=== PATIENT | male | born 1935 | race Caucasian/White ===

== ENCOUNTER 2017-05-13 06:45 | Inpatient (IN) | payer MEDICARE, BC ==
[2017-05-13] MEDS ORDERED: Sodium Chloride 0.9% 10 ML Syringe FLUSH PRN (07:19)
--- NOTE | 2017-05-13 07:27 | EDM.PDOC ---
ED HPI GENERAL MEDICAL PROBLEM - General Chief Complaint: General Stated Complaint: Fell out of bed, no injuries noted Time Seen by Provider: 05/13/17 07:17 Source of Information: Reports: Patient, Family History Limitations: Reports: No Limitations - History of Present Illness INITIAL COMMENTS - FREE TEXT/NARRATIVE: Patient is brought in this morning at 7 AM with complaints of weakness and confusion, and following out of bed. He is unable to walk well on his own and is brought in via ambulance. He does live with his sister and was stated that he fell out of bed during the night and he was left there. He is generally unkempt, he does have some very dirty dentition. Does have history of uncontrolled diabetes, hypertension, prior CVA, as well as cardiac stent placements. He also complains of a rash to his upper right shoulder that goes to his back and neck. He states this rash started about 4 days ago. He denies that he has any chest pain, shortness breath, abdominal pain, headache, he does however indicate that he is pain more frequently as well as having more frequent bowel movements. He smokes 1/4-1/2 pack per day. Has smoked since age 16. Has not had alcohol in over a year. Denies drug use. Onset: Sudden Onset Date: 05/13/17 Duration: Intermittent Associated Symptoms: Reports: Confusion - Related Data Allergies Allergy/AdvReac Type Severity Reaction Status Date / Time No Known Allergies Allergy Verified 05/13/17 07:29 Home Meds: Home Meds Calcium Carbonate [Tums] 2 tab.chew PO DAILY 02/24/13 [History] FA/Lycopene/Lut/MV,Ca,Iron,Min [Centrum] 1 tab PO DAILY 02/24/13 [History] Lisinopril [Prinivil] 2.5 mg PO DAILY tablet 06/05/14 [Rx] glyBURIDE [Micronase] 2.5 mg PO BIDM tablet 06/05/14 [Rx] Alendronate [Fosamax] 70 mg PO WEEKLY 06/13/14 [History] Clopidogrel [Plavix] 75 mg PO 06/13/14 [History] Ezetimibe/Simvastatin [Vytorin 10-40 mg Tablet] 1 each PO 06/13/14 [History] Aspirin [Ecotrin] 325 mg PO Q6HR PRN 05/13/17 [History] metFORMIN [Glucophage] 500 mg PO BIDMEALS 05/13/17 [History] Social & Family History - Tobacco Use Smoking Status *Q: Current Every Day Smoker Years of Tobacco use: 55 Used Tobacco, but Quit: No Second Hand Smoke Exposure: No - Alcohol Use Days Per Week of Alcohol Use: 7 Number of Drinks Per Day: 2 Total Drinks Per Week: 14 - Recreational Drug Use Recreational Drug Use: No - Living Situation & Occupation Living situation: Reports: with Family ED ROS GENERAL - Review of Systems Review Of Systems: See Below Constitutional: Reports: No Symptoms HEENT: Reports: No Symptoms Respiratory: Reports: No Symptoms Cardiovascular: Reports: No Symptoms Endocrine: Reports: High Glucose GI/Abdominal: Reports: Other (frequent bowel movements) : Reports: Frequency Musculoskeletal: Reports: No Symptoms Skin: Reports: Erythema Neurological: Reports: Confusion, Weakness Psychiatric: Reports: No Symptoms Hematologic/Lymphatic: Reports: No Symptoms Immunologic: Reports: No Symptoms ED EXAM, GENERAL - Physical Exam Exam: See Below Exam Limited By: Altered Mental Status General Appearance: Alert, No Apparent Distress Eye Exam: Bilateral Eye: EOMI, PERRL Ears: Normal TMs Nose: Normal Inspection, Normal Mucosa, No Blood Throat/Mouth: Normal Inspection, Normal Lips, Normal Teeth, Normal Gums, Normal Oropharynx, Normal Voice, No Airway Compromise Head: Atraumatic, Normocephalic Neck: Normal Inspection, Supple, Non-Tender, Full Range of Motion Respiratory/Chest: No Respiratory Distress, Lungs Clear, Normal Breath Sounds, No Accessory Muscle Use, Chest Non-Tender Cardiovascular: Normal Peripheral Pulses, Regular Rate, Rhythm, No Edema, No Gallop, No JVD, No Murmur, No Rub Peripheral Pulses: 2+: Posterior Tibial (L), Posterior Tibial (R), Dorsalis Pedis (L), Dorsalis Pedis (R) GI/Abdominal: Normal Bowel Sounds, Soft, Non-Tender, No Organomegaly, No Distention, No Abnormal Bruit, No Mass Extremities: Normal Inspection, Non-Tender, No Pedal Edema, Normal Capillary Refill, Limited Range of Motion (weakness) Neurological: Alert, Confused, Abnormal Gait Psychiatric: Normal Affect, Normal Mood Skin Exam: Rash (large caustic rash to right shoulder, upper right back and right neck, blisters present as is sloughing skin, states it started 4 days ago) EKG INTERPRETATION EKG Date: 05/13/17 Time: 07:02 Rhythm: Other (sinus tachycardia with pvc's) Rate (Beats/Min): 113 [place]: Normal P-Wave: Present QRS: Normal ST-T: Normal QT: Normal Comparison: Change From Previous EKG EKG Interpretation Comments: Sinus tachcardia with frequent supraventricular premature complexes low QRS voltage in extremity leads septal [place] of indeterminate age - seen on prior EKG Course - Orders/Labs/Meds Orders: Active Orders 24 hr Category Date Time Status CBC WITH MANUAL DIFF [HEME] Stat Lab 05/13/17 07:17 Ordered COMPREHENSIVE METABOLIC PN,CMP [CHEM] Stat Lab 05/13/17 07:17 Ordered CPK [CREATINE KINASE,CK] [CHEM] Stat Lab 05/13/17 07:17 Ordered UA W/MICROSCOPIC [URIN] Stat Lab 05/13/17 07:17 Ordered Sodium Chloride 0.9% @ 125 MLS/HR (1000ml) Med 05/13/17 07:30 Ordered Sodium Chloride 0.9% [Normal Saline] 1,000 ml IV ASDIRECTED Sodium Chloride 0.9% [Saline Flush] Med 05/13/17 07:19 Ordered 10 ml FLUSH ASDIRECTED PRN Saline Lock Insert [OM.PC] Routine Oth 05/13/17 07:19 Ordered - Re-Assessments/Exams Free Text/Narrative Re-Assessment/Exam: 05/13/17 09:11 urine does show ketones, leukocytes, WBC's - will treat for complicated UTI 05/13/17 10:27 Admission to acute care, report given to Shahriar Douglas Departure - Departure Time of Disposition: 09:45 Disposition: Admitted As Inpatient 66 Condition: Fair Clinical Impression: UTI, Urinary tract infectious disease - Discharge Information - My Orders Last 24 Hours: My Active Orders 05/13/17 07:17 CBC WITH MANUAL DIFF [HEME] Stat COMPREHENSIVE METABOLIC PN,CMP [CHEM] Stat CPK [CREATINE KINASE,CK] [CHEM] Stat UA W/MICROSCOPIC [URIN] Stat 05/13/17 07:19 Sodium Chloride 0.9% [Saline Flush] 10 ml FLUSH ASDIRECTED PRN Saline Lock Insert [OM.PC] Routine 05/13/17 07:30 Sodium Chloride 0.9% @ 125 MLS/HR (1000ml) Sodium Chloride 0.9% [Normal Saline] 1,000 ml IV ASDIRECTED - Assessment/Plan Last 24 Hours: My Active Orders 05/13/17 07:17 CBC WITH MANUAL DIFF [HEME] Stat COMPREHENSIVE METABOLIC PN,CMP [CHEM] Stat CPK [CREATINE KINASE,CK] [CHEM] Stat UA W/MICROSCOPIC [URIN] Stat 05/13/17 07:19 Sodium Chloride 0.9% [Saline Flush] 10 ml FLUSH ASDIRECTED PRN Saline Lock Insert [OM.PC] Routine 05/13/17 07:30 Sodium Chloride 0.9% @ 125 MLS/HR (1000ml) Sodium Chloride 0.9% [Normal Saline] 1,000 ml IV ASDIRECTED
[2017-05-13] MEDS: Sodium Chloride 0.9% 1,000 ML IV SCH ×2 (07:36→17:51)
[2017-05-13] MEDS ORDERED: Triamcinolone Acetonide 0.1% Crm 15 GM Tube TOP ONE (07:44)
[2017-05-13] MEDS ORDERED: cefTRIAXone 1 GM Vial IVPUSH ONE (08:57)
[2017-05-13] MEDS ORDERED: Diphtheria,Pertussis(Acell),Tetanus Vaccine 0.5 ML Syringe IM ONE (09:22)
[2017-05-13] MEDS ORDERED: Pneumococcal 23-Valent Conjugate Vaccine 0.5 ML Syringe IM ONE (09:22)
[2017-05-13] MEDS ORDERED: FLU Vacc TS 2017-18 (65yr UP)/PF 180 MCG/0.5 ML Syringe IM ONE (09:45)
[2017-05-13] MEDS ORDERED: Ondansetron 4 MG Tab.DIS PO PRN (10:41)
[2017-05-13] MEDS ORDERED: Insulin Regular, Human 100 Units/ML 3 ML Vial IV ONE (13:41)
--- NOTE | 2017-05-13 13:43 | PCM.HP ---
H&P History of Present Illness - General Date of Service: 05/13/17 Admit Problem/Dx: Admission Diagnosis/Problem Admission Diagnosis/Problem Urinary tract infection in male Hyperglycemia in the setting of Uncontrolled Diabetes Type II Acute Dermatitis Essential Hypertension Mixed Hyperlipidemia Malnutrition, albumin 3.1 Nicotine Dependence Source of Information: Patient, EMS Notes Reviewed, Family, Old Records, RN, RN Notes Reviewed History Limitations: Reports: Altered Mental Status (confusion) - History of Present Illness Initial Comments - Free Text/Narative: Patient was brought to the ED at [facility] this AM via EMS after he fell at home last evening. Patient is confused and a poor historian. According to the patient's sister, whom he lives with, the patient fell out of bed sometime last evening. The sister states she was unable to life the patient off the floor , so he was left there until EMS was called around 7am today. The patient denies any pain. He states he was a chronic non-productive cough "that I have had for years." He denies any abdominal pain. No N/V/D. He has a caustic rash over the right chest wall extending around to the upper right posterior shoulder. Blisters are present with some sloughing. Patient states the rash started about 4 days ago. He admits he tried spraying Lysol onto the rash "to make it go away." He denies any peripheral neuropathy. He states his weakness has been present for some time. CT of Head did not reveal any acute pathology today. His urine did show a mild UTI, +ketones, with glucose in the urine. He admits he does not follow an ADA diet. His last visit with his PCP was April 2016. He is due for his annual exam with his PCP anytime. Onset of Symptoms: Reports: Gradual - Related Data Allergies/Adverse Reactions: Allergies Allergy/AdvReac Type Severity Reaction Status Date / Time No Known Allergies Allergy Verified 05/13/17 07:29 Home Medications: Home Meds Calcium Carbonate [Tums] 2 tab.chew PO DAILY 02/24/13 [History] FA/Lycopene/Lut/MV,Ca,Iron,Min [Centrum] 1 tab PO DAILY 02/24/13 [History] Lisinopril [Prinivil] 2.5 mg PO DAILY tablet 06/05/14 [Rx] glyBURIDE [Micronase] 2.5 mg PO BIDM tablet 06/05/14 [Rx] Alendronate [Fosamax] 70 mg PO WEEKLY 06/13/14 [History] Clopidogrel [Plavix] 75 mg PO DAILY 06/13/14 [History] Ezetimibe/Simvastatin [Vytorin 10-40 mg Tablet] 1 each PO DAILY 06/13/14 [ History] Aspirin [Ecotrin] 325 mg PO Q6HR PRN 05/13/17 [History] metFORMIN [Glucophage] 500 mg PO BIDMEALS 05/13/17 [History] Past Medical History HEENT History: Reports: Hard of Hearing Cardiovascular History: Reports: CAD, High Cholesterol, Hypertension, PTCA, PVD Other Cardiovascular History: Peripheral artery disease Gastrointestinal History: Reports: Colon Polyp Musculoskeletal History: Reports: Back Pain, Chronic, Osteoporosis Other Musculoskeletal History: avascular necrosis of femur head. spondylolysis of lumbosacral region. thoracic compression fracture Neurological History: Reports: CVA Endocrine/Metabolic History: Reports: Diabetes, Type II, Osteoporosis - Past Surgical History Cardiovascular Surgical History: Reports: Carotid Endarterectomy, Coronary Artery Stent, Other (See Below) Other Cardiovascular Surgeries/Procedures: coronary angioplasty GI Surgical History: Reports: Colonoscopy, Other (See Below) Other GI Surgeries/Procedures: colectomy Social & Family History - Family History Family Medical History: Noncontributory - Tobacco Use Smoking Status *Q: Current Every Day Smoker Years of Tobacco use: 55 Packs/Tins Daily: 0.5 Used Tobacco, but Quit: No Second Hand Smoke Exposure: No - Caffeine Use Caffeine Use: Reports: None - Alcohol Use Alcohol Use History: Yes Days Per Week of Alcohol Use: 7 Number of Drinks Per Day: 2 Total Drinks Per Week: 14 Alcohol Use Frequency: Not Used in Over 1 Year - Recreational Drug Use Recreational Drug Use: No Drug Use in Last 12 Months: No - Living Situation & Occupation Living situation: Reports: Single, with Family Occupation: Retired H&P Review of Systems - Review of Systems: Review Of Systems: See Below General: Reports: Weakness, Fatigue. Denies: Fever, Chills Pulmonary: Reports: Cough. Denies: Shortness of Breath Cardiovascular: Denies: Chest Pain, Palpitations Gastrointestinal: Denies: Abdominal Pain, Nausea, Vomiting Skin: Reports: Rash Neurological: Reports: Confusion. Denies: Dizziness, Headache, Numbness, Paresthesia, Tingling Exam - Exam Exam: See Below - Vital Signs Vital Signs: Last Vital Signs Temp 36.5 C 05/13/17 09:12 Pulse 94 05/13/17 09:12 Resp 16 05/13/17 09:12 BP 142/89 H 05/13/17 09:12 Pulse Ox 97 05/13/17 09:12 Weight: 47.174 kg - Exam Quality Assessment: DVT Prophylaxis, Skin Breakdown General: Alert, Cooperative. No: Oriented Lungs: Clear to Auscultation, Normal Respiratory Effort, Decreased Breath Sounds Cardiovascular: Regular Rate, Regular Rhythm, Normal S1, Normal S2 GI/Abdominal Exam: Soft, Non-Tender, Abnormal Bowel Sounds (Hypoactive) Peripheral Pulses: 2+: Radial (L), Radial (R) Skin: Warm, Dry, Rash (Caustic, blister type rash over the right upper anterior chest wall extending to upper posterior right shoulder; ), Wound (abrasion to the right and left medial knees; skin intact; no evidence of infection) Neuro Extensive - Mental Status: Alert, Disorientation to Place, Disorientation to Time, Memory Loss-Recent Events (chronic) - Patient Data Result Diagrams: 05/13/17 07:45 05/13/17 07:45 Javier Results Last 24 hrs: Microbiology 05/13/17 09:28 Anaerobic Blood Culture - Final Blood - Venous - Lab Draw 05/13/17 09:21 Anaerobic Blood Culture - Final Blood - Venous *Q Meaningful Use (ADM) - VTE *Q VTE Criteria *Q: VTE Mechanical Contraindications *Q: At Risk for Falls - Stroke *Q Stroke Criteria *Q: - AMI *Q AMI Criteria *Q: - Problem List (1) UTI, Urinary tract infectious disease SNOMED Code(s): 51012294 ICD Code: N39.0 - URINARY TRACT INFECTION, SITE NOT SPECIFIED Status: Acute Priority: Medium Current Visit: Yes (2) Weakness SNOMED Code(s): 27616911 ICD Code: R53.1 - WEAKNESS Status: Acute Priority: Medium Current Visit : Yes (3) Hyperglycemia due to type 2 diabetes mellitus SNOMED Code(s): 970818954946386 ICD Code: E11.65 - TYPE 2 DIABETES MELLITUS WITH HYPERGLYCEMIA Status: Acute Priority: High Current Visit: Yes Qualifiers: Diabetes mellitus termite treater insulin use: without termite treater use Qualified Code(s): E11.65 - Type 2 diabetes mellitus with hyperglycemia (4) Dermatitis SNOMED Code(s): 80973717 ICD Code: L30.9 - DERMATITIS, UNSPECIFIED Status: Acute Priority: Medium Current Visit: Yes Onset Date: ~05/09/17 (5) Malnutrition SNOMED Code(s): 42087473 ICD Code: E46 - UNSPECIFIED PROTEIN-CALORIE MALNUTRITION Status: Acute Current Visit: Yes Qualifiers: Malnutrition type: protein-calorie malnutrition Protein-calorie malnutrition severity: mild Qualified Code(s): E44.1 - Mild protein-calorie malnutrition (6) Nicotine dependence with current use SNOMED Code(s): 375993470 ICD Code: F17.200 - NICOTINE DEPENDENCE, UNSPECIFIED, UNCOMPLICATED Status : Chronic Current Visit: Yes (7) Coronary artery disease SNOMED Code(s): 90931955 ICD Code: I25.10 - ATHSCL HEART DISEASE OF [place] CORONARY ARTERY W/O ANG PCTRS Status: Chronic Priority: Medium Current Visit: No Qualifiers: Coronary Disease-Associated Artery/Lesion type: [place] artery [place] vs. transplanted heart: [place] heart Associated angina: without angina Qualified Code(s): I25.10 - Atherosclerotic heart disease of [place] coronary artery without angina pectoris (8) Essential hypertension SNOMED Code(s): 69909500 ICD Code: I10 - ESSENTIAL (PRIMARY) HYPERTENSION Status: Chronic Priority : Medium Current Visit: No (9) Mixed hyperlipidemia due to type 2 diabetes mellitus SNOMED Code(s): 20403115 ICD Code: E11.69 - TYPE 2 DIABETES MELLITUS WITH OTHER SPECIFIED COMPLICATION ; E78.2 - MIXED HYPERLIPIDEMIA Status: Chronic Priority: Medium Current Visit: No Problem List Initiated/Reviewed/Updated: Yes Orders Last 24hrs: Active Orders 24 hr Category Date Time Status Patient Status [ADT] Routine ADT 05/13/17 10:35 Active Accu Check [Blood Glucose Check, Bedside] [RC] TIDAC Care 05/13/17 12:44 Active Ambulate [RC] 08,20 Care 05/13/17 10:41 Active Intake and Output [RC] ,18 Care 05/13/17 10:45 Active May Shower [RC] .PRN Care 05/13/17 10:41 Active Oxygen Therapy [RC] PRN Care 05/13/17 10:35 Active Smoking Cessation Education [RC] ROUTINE Care 05/13/17 13:18 Active VTE/DVT Education [RC] .PRN Care 05/13/17 10:35 Active Vaccines to be Administered [RC] PER UNIT ROUTINE Care 05/13/17 09:24 Active Vital Signs [RC] 06,10,14,18,22,02 Care 05/13/17 10:35 Active Consult to Case Management [CONS] Routine Cons 05/13/17 10:41 Active OT Evaluation and Treatment [CONS] Routine Cons 05/13/17 10:41 Active PT Evaluation and Treatment [CONS] Routine Cons 05/13/17 10:41 Active [place] [employer] Diet [DIET] Diet 05/13/17 Breakfast Active Chest 2V [CR] Routine Exams 05/13/17 13:16 Ordered BASIC METABOLIC PANEL,BMP [CHEM] Routine Lab 05/14/17 05:11 Ordered BLOOD SMEARS TO PATHOLOGIST [REF] Routine Lab 05/14/17 05:11 Ordered CBC WITH AUTO DIFF [HEME] Routine Lab 05/14/17 05:11 Ordered CULTURE BLOOD [BC] Stat Lab 05/13/17 09:21 Results CULTURE BLOOD [BC] Stat Lab 05/13/17 09:28 Results CULTURE URINE [RM] Stat Lab 05/13/17 07:24 Received GLYCOSYLATED HEMOGLOBIN,HGBA1C [CHEM] Routine Lab 05/14/17 05:11 Ordered LIPID PANEL [CHEM] Routine Lab 05/14/17 05:11 Ordered MAGNESIUM [CHEM] Routine Lab 05/14/17 05:11 Ordered MICROALBUMIN, URINE RANDOM Routine Lab 05/14/17 05:11 Ordered Acetaminophen [Tylenol] Med 05/13/17 10:41 Active 650 mg PO Q4H PRN Aspirin [Halfprin] Med 05/14/17 08:00 Active 81 mg PO WITHBREAKFAST Ciprofloxacin in D5W [Cipro in D5W 400 MG/200 ML] 400 Med 05/13/17 14:00 Active mg Premix Bag 1 bag IV Q12H Clopidogrel [Plavix] Med 05/13/17 13:00 Active 75 mg PO DAILY Ezetimibe [Zetia] Med 05/13/17 13:00 Active 10 mg PO DAILY Insulin Regular, Human [HumuLIN R] Med 05/13/17 17:00 Active See Protocol SUBCUT TIDAC Lisinopril [Prinivil] Med 05/13/17 13:00 Active 5 mg PO DAILY Nicotine [Habitrol] Med 05/13/17 13:30 Active 21 mg TRDERM DAILY Ondansetron [Zofran ODT] Med 05/13/17 10:41 Active 4 mg PO Q6H PRN Simvastatin [Zocor] Med 05/13/17 13:00 Active 40 mg PO DAILY Triamcinolone Acetonide [Triamcinolone Acetonide 0.1% Med 05/13/17 20:00 Active Crm] 0 gm TOP BID glyBURIDE [Micronase] Med 05/13/17 18:00 Active 2.5 mg PO BIDM metFORMIN [Glucophage] Med 05/13/17 18:00 Active 1,000 mg PO BIDMEALS Blood Culture x2 Reflex Set [OM.PC] Stat Oth 05/13/17 08:59 Ordered Resuscitation Status Routine Resus Stat 05/13/17 10:34 Ordered Medication Orders Acetaminophen (Tylenol) 650 mg PO Q4H PRN PRN Reason: Pain (Mild 1-3)/fever Aspirin (Halfprin) 81 mg PO WITHBREAKFAST [facility] Clopidogrel Bisulfate (Plavix) 75 mg PO DAILY [facility] Ezetimibe (Zetia) 10 mg PO DAILY [facility] Glyburide (Micronase) 2.5 mg PO BIDM [facility] Sodium Chloride (Normal Saline) 1,000 mls @ 125 mls/hr IV ASDIRECTED [facility] Last Admin: 05/13/17 07:36 Dose: 125 mls/hr Ciprofloxacin/Dextrose 400 mg/ (Premix) 200 mls @ 200 mls/hr IV Q12H [facility] Insulin Human Regular (Humulin R) 0 unit SUBCUT TIDAC [facility] PRN Reason: Protocol Lisinopril (Prinivil) 5 mg PO DAILY [facility] Metformin HCl (Glucophage) 1,000 mg PO BIDMEALS [facility] Nicotine (Habitrol) 21 mg TRDERM DAILY [facility] Ondansetron HCl (Zofran Odt) 4 mg PO Q6H PRN PRN Reason: nausea, able to take PO Simvastatin (Zocor) 40 mg PO DAILY [facility] Sodium Chloride (Saline Flush) 10 ml FLUSH ASDIRECTED PRN PRN Reason: Keep Vein Open Triamcinolone Acetonide (Triamcinolone Acetonide 0.1% Crm) 0 gm TOP BID [facility] Assessment/Plan Comment:: 81 yo male patient with a PMH of HTN, CAD, Uncontrolled DM, mixed hyperlipidemia , and cigarette smoking, is admitted to the acute care floor at [facility] for a diagnosis of UTI, weakness, hyperglycemia in the setting of DM Type II, and malnutrition. 1. UTI - start IV Cipro, PO fluid encouragement, continue with IVF 2. Weakness - PT/OT consults; ambulate per nursing staff 3. Hyperglycemia with DM Type II - start SSI with Accuchecks TID; ADA diet; recheck labs in AM; increase Metformin to 1000mg BID, start daily ASA 81mg 4. Malnutrition - mild at this time, encourage proper DM diet 5. Hypertension - increase Lisinopril to 5mg daily, ADA diet, low salt 6. Mixed hyperlipidemia - recheck fasting lipids in AM, ADA diet, continue with current lipid drugs 7. Nicotine dependence - Nicotine patch 21mg daily; discussed smoking cessation ; obtain CXR today (also has a chronic cough) 8. CAD - start daily low dose ASA 81mg; ADA diet, low sodium; continue with Plavix 9. Code 3 Patient does not wish to be transferred to a higher level of care should the need arise. DVT prophylaxis early ambulation. Hold Fosamax for now due to low Cr Cl. Last BUN/Creat were normal at 20/1.04 respectively, April 2016. Will continue to monitor. Will started Triamcinolone cream BID for rash. It appears to be a simple dermatitis. If not better in a couple days, will consider bx. Check fasting labs in AM.
[2017-05-13] MEDS: Simvastatin 40 MG Tab PO SCH (13:51)
[2017-05-13] MEDS: Lisinopril 5 MG Tab PO SCH (13:51)
[2017-05-13] MEDS: Clopidogrel 75 MG Tab PO SCH (13:51)
[2017-05-13] MEDS: Ezetimibe 10 MG Tab PO SCH (13:51)
[2017-05-13] MEDS: Ciprofloxacin in D5W 400 MG in Premix Bag 1 BAG IV SCH ×2 (13:52)
[2017-05-13] MEDS: Nicotine 21 MG/24 Hr Patch TRDERM SCH (13:52)
[2017-05-13] MEDS: Insulin Regular, Human 100 Units/ML 3 ML Vial SUBCUT SCH (17:50)
[2017-05-13] MEDS: glyBURIDE 5 MG Tab PO SCH (19:44)
[2017-05-13] MEDS: metFORMIN 500 MG Tab PO SCH (19:44)
[2017-05-13] MEDS: Triamcinolone Acetonide 0.1% Crm 15 GM Tube TOP SCH (21:32)
[2017-05-14] MEDS: Sodium Chloride 0.9% 1,000 ML IV SCH ×2 (01:47→11:01)
[2017-05-14] MEDS: Ciprofloxacin in D5W 400 MG in Premix Bag 1 BAG IV SCH ×4 (04:03→13:29)
[2017-05-14] MEDS: Insulin Regular, Human 100 Units/ML 3 ML Vial SUBCUT SCH ×3 (06:15→17:30)
[2017-05-14 07:57] LABS: CHLORIDE,CL 107 mmol/L (98-107); SODIUM,NA 141 mmol/L (136-145)
[2017-05-14] MEDS ORDERED: Aspirin 81 MG Tab.EC PO SCH (08:00)
[2017-05-14] MEDS: Ezetimibe 10 MG Tab PO SCH (08:36)
[2017-05-14] MEDS: metFORMIN 500 MG Tab PO SCH ×2 (08:37→17:30)
[2017-05-14] MEDS: Triamcinolone Acetonide 0.1% Crm 15 GM Tube TOP SCH (08:37)
[2017-05-14] MEDS: glyBURIDE 5 MG Tab PO SCH ×2 (08:37→17:30)
[2017-05-14] MEDS: Simvastatin 40 MG Tab PO SCH (08:37)
[2017-05-14] MEDS: Lisinopril 5 MG Tab PO SCH (08:37)
[2017-05-14] MEDS: Clopidogrel 75 MG Tab PO SCH (08:37)
[2017-05-14] MEDS: Nicotine 21 MG/24 Hr Patch TRDERM SCH (09:41)
[2017-05-14] MEDS ORDERED: FLU Vacc TS 2017-18 (65yr UP)/PF 180 MCG/0.5 ML Syringe IM ONE (12:00)
[2017-05-14] MEDS ORDERED: Diphtheria,Pertussis(Acell),Tetanus Vaccine 0.5 ML Syringe IM ONE (12:00)
[2017-05-14] MEDS ORDERED: Potassium Chloride 20 MEQ Tab.ER PO ONE (16:02)
[2017-05-14] MEDS ORDERED: Magnesium Sulfate/Water 4 GM in Premix Bag 1 BAG IV ONE (16:02)
[2017-05-14] MEDS: Acetaminophen 325 MG Tab PO PRN (17:29)
--- NOTE | 2017-05-14 22:59 | PCM.PN ---
- General Info Date of Service: 05/14/17 Admission Dx/Problem (Free Text): Admission Diagnosis/Problem Admission Diagnosis/Problem Urinary tract infection in male Hyperglycemia in the setting of Uncontrolled Diabetes Type II Acute Dermatitis Essential Hypertension Mixed Hyperlipidemia Malnutrition, albumin 3.1 Nicotine Dependence Subjective Update: Patient offers no specific complaints today. He is less confused. He states he does not have any issues with urination or BM's. No pain. Tolerated diet. Functional Status: Reports: Pain Controlled, Tolerating Diet, Urinating Pain Score: 0 - Review of Systems General: Reports: Weakness, Fatigue. Denies: Fever, Chills Pulmonary: Reports: Cough. Denies: Shortness of Breath, Sputum Cardiovascular: Denies: Chest Pain, Palpitations Gastrointestinal: Denies: Abdominal Pain, Nausea, Vomiting Skin: Reports: Rash (right upper chest wall extending to upper posterior back) Neurological: Reports: Confusion (improving). Denies: Dizziness, Headache - Patient Data Vitals - Most Recent: Last Vital Signs Temp 36.7 C 05/14/17 21:40 Pulse 84 05/14/17 21:40 Resp 18 05/14/17 21:40 BP 116/47 L 05/14/17 21:40 Pulse Ox 94 L 05/14/17 21:40 Weight - Most Recent: 47.174 kg I&O - Last 24 Hours: Intake & Output 05/14/17 05/14/17 05/14/17 06:59 14:59 22:59 Intake Total 2483 537 0012 Output Total 400 200 225 Balance 1421 -20 1328 Lab Results Last 24 Hours: Laboratory Results - last 24 hr 05/14/17 05/14/17 05/14/17 Range/Units 06:12 07:09 07:09 WBC 6.7 (4.0-10.0) x10^3/uL RBC 4.07 L (4.5-6.0) x10^6/uL Hgb 11.4 L D (14.0-18.0) g/dL Hct 35.1 L (40.0-52.0) % MCV 86.2 (78.0-93.0) fL MCH 28.0 (26.0-32.0) pg MCHC 32.5 (32.0-36.0) g/dL RDW Coeff of [place] 14.0 (10.0-15.0) % Plt Count 228 (130-400) x10^3/uL Neut % (Auto) 68.5 (50.0-80.0) % Lymph % (Auto) 21.2 L (25.0-50.0) % [place] % (Auto) 9.0 (2.0-11.0) % Eos % (Auto) 0.8 (0.0-4.0) % Baso % (Auto) 0.5 (0.2-1.2) % VBG pH (7.31-7.41) Sodium 141 (136-145) mmol/L Potassium 3.2 L (3.5-5.1) mmol/L Chloride 107 (98-107) mmol/L Carbon Dioxide 28 (21-32) mmol/L BUN 30 H (7-18) mg/dL Creatinine 0.9 (0.70-1.30) mg/dL Est Cr Clr Drug Dosing 42.95 mL/min Estimated GFR (MDRD) > 60 Glucose 163 H (74-106) mg/dL POC Glucose 165 H (74-106) mg/dL Hemoglobin A1c (4.5-6.2) % Lactic Acid (0.4-2.0) mmol/L Calcium 7.8 L D (8.5-10.1) mg/dL Magnesium 1.2 L (1.8-2.4) mg/dL Triglycerides 109 (0-149) mg/dL Cholesterol 112 (0-199) mg/dL LDL Cholesterol, Calc 67 (0-130) mg/dL HDL Cholesterol 23 L (40-59) mg/dL 05/14/17 05/14/17 05/14/17 Range/Units 07:09 07:09 07:09 WBC (4.0-10.0) x10^3/uL RBC (4.5-6.0) x10^6/uL Hgb (14.0-18.0) g/dL Hct (40.0-52.0) % MCV (78.0-93.0) fL MCH (26.0-32.0) pg MCHC (32.0-36.0) g/dL RDW Coeff of [place] (10.0-15.0) % Plt Count (130-400) x10^3/uL Neut % (Auto) (50.0-80.0) % Lymph % (Auto) (25.0-50.0) % [place] % (Auto) (2.0-11.0) % Eos % (Auto) (0.0-4.0) % Baso % (Auto) (0.2-1.2) % VBG pH 7.37 (7.31-7.41) Sodium (136-145) mmol/L Potassium (3.5-5.1) mmol/L Chloride (98-107) mmol/L Carbon Dioxide (21-32) mmol/L BUN (7-18) mg/dL Creatinine (0.70-1.30) mg/dL Est Cr Clr Drug Dosing mL/min Estimated GFR (MDRD) Glucose (74-106) mg/dL POC Glucose (74-106) mg/dL Hemoglobin A1c 12.4 H (4.5-6.2) % Lactic Acid 0.9 (0.4-2.0) mmol/L Calcium (8.5-10.1) mg/dL Magnesium (1.8-2.4) mg/dL Triglycerides (0-149) mg/dL Cholesterol (0-199) mg/dL LDL Cholesterol, Calc (0-130) mg/dL HDL Cholesterol (40-59) mg/dL 05/14/17 05/14/17 Range/Units 11:11 16:42 WBC (4.0-10.0) x10^3/uL RBC (4.5-6.0) x10^6/uL Hgb (14.0-18.0) g/dL Hct (40.0-52.0) % MCV (78.0-93.0) fL MCH (26.0-32.0) pg MCHC (32.0-36.0) g/dL RDW Coeff of [place] (10.0-15.0) % Plt Count (130-400) x10^3/uL Neut % (Auto) (50.0-80.0) % Lymph % (Auto) (25.0-50.0) % [place] % (Auto) (2.0-11.0) % Eos % (Auto) (0.0-4.0) % Baso % (Auto) (0.2-1.2) % VBG pH (7.31-7.41) Sodium (136-145) mmol/L Potassium (3.5-5.1) mmol/L Chloride (98-107) mmol/L Carbon Dioxide (21-32) mmol/L BUN (7-18) mg/dL Creatinine (0.70-1.30) mg/dL Est Cr Clr Drug Dosing mL/min Estimated GFR (MDRD) Glucose (74-106) mg/dL POC Glucose 209 H 158 H (74-106) mg/dL Hemoglobin A1c (4.5-6.2) % Lactic Acid (0.4-2.0) mmol/L Calcium (8.5-10.1) mg/dL Magnesium (1.8-2.4) mg/dL Triglycerides (0-149) mg/dL Cholesterol (0-199) mg/dL LDL Cholesterol, Calc (0-130) mg/dL HDL Cholesterol (40-59) mg/dL Javier Results Last 24 Hours: Microbiology 05/14/17 16:00 Gram Stain - Final Serous Fluid 05/13/17 09:28 Aerobic Blood Culture - Preliminary Blood - Venous - Lab Draw NO GROWTH AFTER 1 DAY Anaerobic Blood Culture - Final 05/13/17 09:21 Aerobic Blood Culture - Preliminary Blood - Venous NO GROWTH AFTER 1 DAY Anaerobic Blood Culture - Final Med Orders - Current: Current Medications Acetaminophen (Tylenol) 650 mg PO Q4H PRN PRN Reason: Pain (Mild 1-3)/fever Last Admin: 05/14/17 17:29 Dose: 650 mg Aspirin (Halfprin) 81 mg PO WITHBREAKFAST [facility] Last Admin: 05/14/17 08:37 Dose: 81 mg Clopidogrel Bisulfate (Plavix) 75 mg PO DAILY [facility] Last Admin: 05/14/17 08:37 Dose: 75 mg Ezetimibe (Zetia) 10 mg PO DAILY [facility] Last Admin: 05/14/17 08:36 Dose: 10 mg Glyburide (Micronase) 2.5 mg PO BIDM [facility] Last Admin: 05/14/17 17:30 Dose: 2.5 mg Sodium Chloride (Normal Saline) 1,000 mls @ 125 mls/hr IV ASDIRECTED [facility] Last Admin: 05/14/17 11:01 Dose: 125 mls/hr Ciprofloxacin/Dextrose 400 mg/ (Premix) 200 mls @ 200 mls/hr IV Q12H [facility] Last Admin: 05/14/17 13:29 Dose: 200 mls/hr Insulin Human Regular (Humulin R) 0 unit SUBCUT TIDAC [facility] PRN Reason: Protocol Last Admin: 05/14/17 17:30 Dose: 1 unit Lisinopril (Prinivil) 5 mg PO DAILY [facility] Last Admin: 05/14/17 08:37 Dose: 5 mg Metformin HCl (Glucophage) 1,000 mg PO BIDMEALS [facility] Last Admin: 05/14/17 17:30 Dose: 1,000 mg Nicotine (Habitrol) 21 mg TRDERM DAILY [facility] Last Admin: 05/14/17 09:41 Dose: 21 mg Ondansetron HCl (Zofran Odt) 4 mg PO Q6H PRN PRN Reason: nausea, able to take PO Simvastatin (Zocor) 40 mg PO DAILY [facility] Last Admin: 05/14/17 08:37 Dose: 40 mg Sodium Chloride (Saline Flush) 10 ml FLUSH ASDIRECTED PRN PRN Reason: Keep Vein Open Triamcinolone Acetonide (Triamcinolone Acetonide 0.1% Crm) 0 gm TOP BID [facility] Last Admin: 05/14/17 08:37 Dose: 1 applic Discontinued Medications Alendronate Sodium (Fosamax) 70 mg PO WEEKLY [facility] Ceftriaxone Sodium (Rocephin) 1 gm IVPUSH ONETIME ONE Stop: 05/13/17 08:58 Last Admin: 05/13/17 09:09 Dose: 1 gm Diphtheria/Tetanus/Acell Pertussis (Adacel) 0.5 ml IM .ONCE ONE Stop: 05/13/17 09:23 Diphtheria/Tetanus/Acell Pertussis (Adacel) 0.5 ml IM .ONCE ONE Stop: 05/14/17 12:01 Magnesium Sulfate 4 gm/ Premix 100 mls @ 25 mls/hr IV ONETIME ONE Stop: 05/14/17 20:01 Last Admin: 05/14/17 16:39 Dose: 25 mls/hr Influenza Virus Vaccine (Fluzone High-Dose ) 180 mcg IM .ONCE ONE Stop: 05/13/17 09:46 Influenza Virus Vaccine (Fluzone High-Dose ) 180 mcg IM .ONCE ONE Stop: 05/14/17 12:01 Insulin Human Regular (Humulin R) 5 unit IV ONETIME ONE Stop: 05/13/17 13:42 Last Admin: 05/13/17 13:49 Dose: 5 unit Potassium Chloride (Klor-Con M20) 40 meq PO ONETIME ONE Stop: 05/14/17 16:03 Last Admin: 05/14/17 16:41 Dose: 40 meq Triamcinolone Acetonide (Triamcinolone Acetonide 0.1% Crm) 15 gm TOP ONETIME ONE Stop: 05/13/17 07:45 Last Admin: 05/13/17 08:45 Dose: 1 applic - Exam Quality Assessment: Supplemental Oxygen, DVT Prophylaxis, Skin Breakdown General: Alert, Cooperative, No Acute Distress Lungs: Clear to Auscultation, Normal Respiratory Effort, Decreased Breath Sounds Cardiovascular: Regular Rate, Regular Rhythm GI/Abdominal Exam: Normal Bowel Sounds, Soft, Non-Tender Peripheral Pulses: 2+: Radial (L), Radial (R) Skin: Warm, Dry, Rash (herpetic appearing rash over right upper anterior chest wall extending to upper posterior right back; blisters intact with some sloughing) Wound/Incisions: Drainage, Erythema Neurological: No New Focal Deficit, Other (confusion improving) - Problem List & Annotations (1) UTI, Urinary tract infectious disease SNOMED Code(s): 39357647 Code(s): N39.0 - URINARY TRACT INFECTION, SITE NOT SPECIFIED Status: Acute Priority: Medium Current Visit: Yes (2) Weakness SNOMED Code(s): 47468386 Code(s): R53.1 - WEAKNESS Status: Acute Priority: Medium Current Visit : Yes (3) Hyperglycemia due to type 2 diabetes mellitus SNOMED Code(s): 874832188222440 Code(s): E11.65 - TYPE 2 DIABETES MELLITUS WITH HYPERGLYCEMIA Status: Acute Priority: High Current Visit: Yes Qualifiers: Diabetes mellitus long distance operator insulin use: without fdc use Qualified Code(s): E11.65 - Type 2 diabetes mellitus with hyperglycemia (4) Dermatitis SNOMED Code(s): 21183918 Code(s): L30.9 - DERMATITIS, UNSPECIFIED Status: Acute Priority: Medium Current Visit: Yes Onset Date: ~05/09/17 (5) Malnutrition SNOMED Code(s): 38537102 Code(s): E46 - UNSPECIFIED PROTEIN-CALORIE MALNUTRITION Status: Acute Current Visit: Yes Qualifiers: Malnutrition type: protein-calorie malnutrition Protein-calorie malnutrition severity: mild Qualified Code(s): E44.1 - Mild protein-calorie malnutrition (6) Nicotine dependence with current use SNOMED Code(s): 109663452 Code(s): F17.200 - NICOTINE DEPENDENCE, UNSPECIFIED, UNCOMPLICATED Status: Chronic Current Visit: Yes (7) Coronary artery disease SNOMED Code(s): 96033846 Code(s): I25.10 - ATHSCL HEART DISEASE OF [place] CORONARY ARTERY W/O ANG PCTRS Status: Chronic Priority: Medium Current Visit: No Qualifiers: Coronary Disease-Associated Artery/Lesion type: [place] artery [place] vs. transplanted heart: [place] heart Associated angina: without angina Qualified Code(s): I25.10 - Atherosclerotic heart disease of [place] coronary artery without angina pectoris (8) Essential hypertension SNOMED Code(s): 04279609 Code(s): I10 - ESSENTIAL (PRIMARY) HYPERTENSION Status: Chronic Priority : Medium Current Visit: No (9) Mixed hyperlipidemia due to type 2 diabetes mellitus SNOMED Code(s): 85974267 Code(s): E11.69 - TYPE 2 DIABETES MELLITUS WITH OTHER SPECIFIED COMPLICATION ; E78.2 - MIXED HYPERLIPIDEMIA Status: Chronic Priority: Medium Current Visit: No - Problem List Review Problem List Initiated/Reviewed/Updated: Yes - My Orders Last 24 Hours: My Active Orders 05/14/17 07:09 BLOOD SMEARS TO PATHOLOGIST [REF] Routine 05/14/17 08:00 Aspirin [Halfprin] 81 mg PO WITHBREAKFAST 05/14/17 08:20 MICROALBUMIN, URINE RANDOM Routine 05/14/17 16:00 CULTURE WOUND + SMEAR [RM] Routine 05/15/17 05:11 BASIC METABOLIC PANEL,BMP [CHEM] Routine CBC WITH AUTO DIFF [HEME] Routine MAGNESIUM [CHEM] Routine - Plan Plan:: 81 yo male patient with a PMH of HTN, CAD, Uncontrolled DM, mixed hyperlipidemia , and cigarette smoking, is admitted to the acute care floor at [facility] for a diagnosis of UTI, weakness, hyperglycemia in the setting of DM Type II, and malnutrition. 1. UTI - continue IV Cipro, PO fluid encouragement, continue with IVF 2. Weakness - PT/OT consults; ambulate per nursing staff 3. Hyperglycemia with DM Type II - improved, but not optimal, A1C 12.4 today; continue with SSI, ADA diet 4. Malnutrition - mild at this time, encourage proper DM diet 5. Hypertension - Lisinopril 5mg daily, ADA diet, low salt 6. Mixed hyperlipidemia - LDL improved from last check, ADA diet, continue with current lipid drugs 7. Nicotine dependence - Nicotine patch 21mg daily; discussed smoking cessation ; CXR with no acute changes 8. CAD - stop ASA, patient already on Plavix; ADA diet, low sodium; continue with Plavix 9. Code 3 Patient does not wish to be transferred to a higher level of care should the need arise. DVT prophylaxis early ambulation. Hold Fosamax for now due to low Cr Cl. Last BUN/Creat were normal at 20/1.04 respectively, April 2016. Will continue to monitor. Will started Triamcinolone cream BID for rash. It appears to be a simple dermatitis. If not better in a couple days, will consider bx. Labs in AM. Wound culture sent for serous drainage from rash. Will give PO KCL and give 4 grams IV Mag today.
[2017-05-15] MEDS: Sodium Chloride 0.9% 1,000 ML IV SCH ×3 (00:11→19:19)
[2017-05-15] MEDS: Triamcinolone Acetonide 0.1% Crm 15 GM Tube TOP SCH ×3 (00:11→19:20)
[2017-05-15] MEDS: Ciprofloxacin in D5W 400 MG in Premix Bag 1 BAG IV SCH ×4 (02:12→14:15)
[2017-05-15] MEDS: Insulin Regular, Human 100 Units/ML 3 ML Vial SUBCUT SCH ×3 (06:20→17:26)
[2017-05-15 07:01] LABS: CHLORIDE,CL 108 mmol/L (98-107); SODIUM,NA 139 mmol/L (136-145)
[2017-05-15] MEDS ORDERED: Alendronate 70 MG Tab PO SCH (08:00)
[2017-05-15] MEDS: Nicotine 21 MG/24 Hr Patch TRDERM SCH (09:35)
[2017-05-15] MEDS: Ezetimibe 10 MG Tab PO SCH (09:35)
[2017-05-15] MEDS: glyBURIDE 5 MG Tab PO SCH ×2 (09:35→18:47)
[2017-05-15] MEDS: Lisinopril 5 MG Tab PO SCH (09:35)
[2017-05-15] MEDS: metFORMIN 500 MG Tab PO SCH ×2 (09:35→18:47)
[2017-05-15] MEDS: Simvastatin 40 MG Tab PO SCH (09:35)
[2017-05-15] MEDS: Clopidogrel 75 MG Tab PO SCH (09:36)
[2017-05-15] MEDS ORDERED: Calcium Gluconate 10% 1 GM/10 ML SDV IVPUSH ONE (09:52)
--- NOTE | 2017-05-15 11:36 | PCM.PN ---
- General Info Date of Service: 05/15/17 Admission Dx/Problem (Free Text): Admission Diagnosis/Problem Admission Diagnosis/Problem Urinary tract infection in male Hyperglycemia in the setting of Uncontrolled Diabetes Type II Acute Dermatitis Essential Hypertension Mixed Hyperlipidemia Malnutrition, albumin 3.1 Nicotine Dependence Subjective Update: Patient states this morning he is resting comfortably. He offers no specific health concerns. He states he is eating and drinking ok. No issues with BM's or urination. No abdominal issues. He feels much more alert and oriented this morning. Functional Status: Reports: Pain Controlled, Tolerating Diet, Urinating Pain Score: 0 - Review of Systems General: Denies: Fever, Weakness, Chills Pulmonary: Reports: Cough. Denies: Shortness of Breath, Sputum Cardiovascular: Denies: Chest Pain, Palpitations Gastrointestinal: Denies: Abdominal Pain, Nausea, Vomiting Skin: Reports: Rash Neurological: Denies: Confusion, Dizziness, Headache - Patient Data Vitals - Most Recent: Last Vital Signs Temp 36.7 C 05/15/17 05:38 Pulse 82 05/15/17 05:38 Resp 18 05/15/17 05:38 BP 151/67 H 05/15/17 05:38 Pulse Ox 94 L 05/15/17 05:38 Weight - Most Recent: 47.174 kg I&O - Last 24 Hours: Intake & Output 05/14/17 05/15/17 05/15/17 22:59 06:59 14:59 Intake Total 1553 1610 30 Output Total 225 700 Balance 1328 910 30 Lab Results Last 24 Hours: Laboratory Results - last 24 hr 05/14/17 05/15/17 05/15/17 Range/Units 16:42 06:16 06:16 WBC 5.6 (4.0-10.0) x10^3/uL RBC 3.92 L (4.5-6.0) x10^6/uL Hgb 11.0 L (14.0-18.0) g/dL Hct 34.4 L (40.0-52.0) % MCV 87.8 (78.0-93.0) fL MCH 28.1 (26.0-32.0) pg MCHC 32.0 (32.0-36.0) g/dL RDW Coeff of [place] 14.5 (10.0-15.0) % Plt Count 258 (130-400) x10^3/uL Neut % (Auto) 58.2 (50.0-80.0) % Lymph % (Auto) 29.0 (25.0-50.0) % [place] % (Auto) 10.1 (2.0-11.0) % Eos % (Auto) 2.0 (0.0-4.0) % Baso % (Auto) 0.7 (0.2-1.2) % Sodium 139 (136-145) mmol/L Potassium 4.2 (3.5-5.1) mmol/L Chloride 108 H (98-107) mmol/L Carbon Dioxide 26 (21-32) mmol/L BUN 19 H (7-18) mg/dL Creatinine 0.9 (0.70-1.30) mg/dL Est Cr Clr Drug Dosing 42.95 mL/min Estimated GFR (MDRD) > 60 Glucose 229 H (74-106) mg/dL POC Glucose 158 H (74-106) mg/dL Calcium 7.5 L (8.5-10.1) mg/dL Magnesium 1.9 (1.8-2.4) mg/dL 05/15/17 Range/Units 06:17 WBC (4.0-10.0) x10^3/uL RBC (4.5-6.0) x10^6/uL Hgb (14.0-18.0) g/dL Hct (40.0-52.0) % MCV (78.0-93.0) fL MCH (26.0-32.0) pg MCHC (32.0-36.0) g/dL RDW Coeff of [place] (10.0-15.0) % Plt Count (130-400) x10^3/uL Neut % (Auto) (50.0-80.0) % Lymph % (Auto) (25.0-50.0) % [place] % (Auto) (2.0-11.0) % Eos % (Auto) (0.0-4.0) % Baso % (Auto) (0.2-1.2) % Sodium (136-145) mmol/L Potassium (3.5-5.1) mmol/L Chloride (98-107) mmol/L Carbon Dioxide (21-32) mmol/L BUN (7-18) mg/dL Creatinine (0.70-1.30) mg/dL Est Cr Clr Drug Dosing mL/min Estimated GFR (MDRD) Glucose (74-106) mg/dL POC Glucose 219 H (74-106) mg/dL Calcium (8.5-10.1) mg/dL Magnesium (1.8-2.4) mg/dL Javier Results Last 24 Hours: Microbiology 05/13/17 09:28 Aerobic Blood Culture - Preliminary Blood - Venous - Lab Draw NO GROWTH AFTER 2 DAYS Anaerobic Blood Culture - Final 05/13/17 09:21 Aerobic Blood Culture - Preliminary Blood - Venous NO GROWTH AFTER 2 DAYS Anaerobic Blood Culture - Final 05/14/17 16:00 Gram Stain - Final Serous Fluid Med Orders - Current: Current Medications Acetaminophen (Tylenol) 650 mg PO Q4H PRN PRN Reason: Pain (Mild 1-3)/fever Last Admin: 05/14/17 17:29 Dose: 650 mg Clopidogrel Bisulfate (Plavix) 75 mg PO DAILY [facility] Last Admin: 05/15/17 09:36 Dose: 75 mg Ezetimibe (Zetia) 10 mg PO DAILY [facility] Last Admin: 05/15/17 09:35 Dose: 10 mg Glyburide (Micronase) 2.5 mg PO BIDM [facility] Last Admin: 05/15/17 09:35 Dose: 2.5 mg Sodium Chloride (Normal Saline) 1,000 mls @ 125 mls/hr IV ASDIRECTED [facility] Last Admin: 05/15/17 09:39 Dose: 125 mls/hr Ciprofloxacin/Dextrose 400 mg/ (Premix) 200 mls @ 200 mls/hr IV Q12H [facility] Last Admin: 05/15/17 02:12 Dose: 200 mls/hr Insulin Human Regular (Humulin R) 0 unit SUBCUT TIDAC [facility] PRN Reason: Protocol Last Admin: 05/15/17 06:20 Dose: 2 unit Lisinopril (Prinivil) 5 mg PO DAILY [facility] Last Admin: 05/15/17 09:35 Dose: 5 mg Metformin HCl (Glucophage) 1,000 mg PO BIDMEALS [facility] Last Admin: 05/15/17 09:35 Dose: 1,000 mg Nicotine (Habitrol) 21 mg TRDERM DAILY [facility] Last Admin: 02/19/18 09:35 Dose: 21 mg Ondansetron HCl (Zofran Odt) 4 mg PO Q6H PRN PRN Reason: nausea, able to take PO Simvastatin (Zocor) 40 mg PO DAILY [facility] Last Admin: 05/15/17 09:35 Dose: 40 mg Sodium Chloride (Saline Flush) 10 ml FLUSH ASDIRECTED PRN PRN Reason: Keep Vein Open Triamcinolone Acetonide (Triamcinolone Acetonide 0.1% Crm) 0 gm TOP BID [facility] Last Admin: 05/15/17 09:38 Dose: 1 applic Discontinued Medications Alendronate Sodium (Fosamax) 70 mg PO WEEKLY [facility] Aspirin (Halfprin) 81 mg PO WITHBREAKFAST [facility] Last Admin: 05/14/17 08:37 Dose: 81 mg Calcium Gluconate (Calcium Gluconate) 1 gm IVPUSH ONETIME ONE Stop: 05/15/17 09:53 Last Admin: 05/15/17 10:47 Dose: 1 gm Ceftriaxone Sodium (Rocephin) 1 gm IVPUSH ONETIME ONE Stop: 05/13/17 08:58 Last Admin: 05/13/17 09:09 Dose: 1 gm Diphtheria/Tetanus/Acell Pertussis (Adacel) 0.5 ml IM .ONCE ONE Stop: 05/13/17 09:23 Diphtheria/Tetanus/Acell Pertussis (Adacel) 0.5 ml IM .ONCE ONE Stop: 05/14/17 12:01 Magnesium Sulfate 4 gm/ Premix 100 mls @ 25 mls/hr IV ONETIME ONE Stop: 05/14/17 20:01 Last Admin: 05/14/17 16:39 Dose: 25 mls/hr Influenza Virus Vaccine (Fluzone High-Dose ) 180 mcg IM .ONCE ONE Stop: 05/13/17 09:46 Influenza Virus Vaccine (Fluzone High-Dose 2016-18) 180 mcg IM .ONCE ONE Stop: 05/14/17 12:01 Insulin Human Regular (Humulin R) 5 unit IV ONETIME ONE Stop: 05/13/17 13:42 Last Admin: 05/13/17 13:49 Dose: 5 unit Potassium Chloride (Klor-Con M20) 40 meq PO ONETIME ONE Stop: 05/14/17 16:03 Last Admin: 05/14/17 16:41 Dose: 40 meq Triamcinolone Acetonide (Triamcinolone Acetonide 0.1% Crm) 15 gm TOP ONETIME ONE Stop: 05/13/17 07:45 Last Admin: 05/13/17 08:45 Dose: 1 applic - Exam Quality Assessment: DVT Prophylaxis, Skin Breakdown General: Alert, Oriented, Cooperative, No Acute Distress Lungs: Decreased Breath Sounds, Wheezing (end expiratory) Cardiovascular: Regular Rate, Regular Rhythm, No Murmurs GI/Abdominal Exam: Soft, Non-Tender, Abnormal Bowel Sounds (Hypoactive) Peripheral Pulses: 2+: Radial (L), Radial (R) Skin: Warm, Dry, Rash (rash over right upper anterior chest wall and upper posterior back is improving; no spread of the rash; no drainage; still erythematous; non-painful; no itching; has multiple areas of scabs) Neurological: No New Focal Deficit - Problem List & Annotations (1) UTI, Urinary tract infectious disease SNOMED Code(s): 84747864 Code(s): N39.0 - URINARY TRACT INFECTION, SITE NOT SPECIFIED Status: Acute Priority: Medium Current Visit: Yes (2) Weakness SNOMED Code(s): 23637885 Code(s): R53.1 - WEAKNESS Status: Acute Priority: Medium Current Visit : Yes (3) Hyperglycemia due to type 2 diabetes mellitus SNOMED Code(s): 616706819095265 Code(s): E11.65 - TYPE 2 DIABETES MELLITUS WITH HYPERGLYCEMIA Status: Acute Priority: High Current Visit: Yes Qualifiers: Diabetes mellitus terminal system operator insulin use: without terminal system operator use Qualified Code(s): E11.65 - Type 2 diabetes mellitus with hyperglycemia (4) Dermatitis SNOMED Code(s): 70286530 Code(s): L30.9 - DERMATITIS, UNSPECIFIED Status: Acute Priority: Medium Current Visit: Yes Onset Date: ~05/09/17 (5) Malnutrition SNOMED Code(s): 09932613 Code(s): E46 - UNSPECIFIED PROTEIN-CALORIE MALNUTRITION Status: Acute Current Visit: Yes Qualifiers: Malnutrition type: protein-calorie malnutrition Protein-calorie malnutrition severity: mild Qualified Code(s): E44.1 - Mild protein-calorie malnutrition (6) Nicotine dependence with current use SNOMED Code(s): 534907833 Code(s): F17.200 - NICOTINE DEPENDENCE, UNSPECIFIED, UNCOMPLICATED Status: Chronic Current Visit: Yes (7) Coronary artery disease SNOMED Code(s): 61182132 Code(s): I25.10 - ATHSCL HEART DISEASE OF [place] CORONARY ARTERY W/O ANG PCTRS Status: Chronic Priority: Medium Current Visit: No Qualifiers: Coronary Disease-Associated Artery/Lesion type: [place] artery [place] vs. transplanted heart: [place] heart Associated angina: without angina Qualified Code(s): I25.10 - Atherosclerotic heart disease of [place] coronary artery without angina pectoris (8) Essential hypertension SNOMED Code(s): 79939009 Code(s): I10 - ESSENTIAL (PRIMARY) HYPERTENSION Status: Chronic Priority : Medium Current Visit: No (9) Mixed hyperlipidemia due to type 2 diabetes mellitus SNOMED Code(s): 31698371 Code(s): E11.69 - TYPE 2 DIABETES MELLITUS WITH OTHER SPECIFIED COMPLICATION ; E78.2 - MIXED HYPERLIPIDEMIA Status: Chronic Priority: Medium Current Visit: No - Problem List Review Problem List Initiated/Reviewed/Updated: Yes - My Orders Last 24 Hours: My Active Orders 05/14/17 16:00 CULTURE WOUND + SMEAR [RM] Routine - Plan Plan:: 81 yo male patient hospital day #3, with a PMH of HTN, CAD, Uncontrolled DM, mixed hyperlipidemia, and cigarette smoking, was admitted to the acute care floor at [facility] for a diagnosis of UTI, weakness, hyperglycemia in the setting of DM Type II, and malnutrition. 1. UTI - continue IV Cipro, PO fluid encouragement, continue with IVF, if patient continues with good PO fluid intake, will consider d/c of IVF 2. Weakness - PT/OT consults; awaiting their assessment today; encourage ambulation with nursing staff 3. Hyperglycemia with DM Type II - improved, but not optimal, A1C 12.4 yesterday ; continue with SSI, ADA diet; may consider long acting insulin at discharge if blood sugars are not well controlled on PO meds 4. Malnutrition - mild at this time, encourage proper DM diet 5. Hypertension - Lisinopril 5mg daily, ADA diet, low salt 6. Mixed hyperlipidemia - LDL much improved from last check, ADA diet, continue with current lipid drugs 7. Nicotine dependence - Nicotine patch 21mg daily; discussed smoking cessation ; CXR yesterday did not show any acute findings 8. CAD - no ASA, patient already on Plavix; ADA diet, low sodium; continue with Plavix 9. Code 3 10. Wound culture of right upper chest wall rash sent to lab; await results, will continue with Triamcinolone cream for now as it seems to be helping Patient does not wish to be transferred to a higher level of care should the need arise. DVT prophylaxis early ambulation. Will continue to hold Fosamax for now due to low Cr Cl and see if uremia improves; K and Mag have normalized. Will give 1 amp of Calcium today. Dr. Bindu Mcmahon will assume care of this patient on 05/16/2017. I would suspect patient may need a few days on Swing Bed to work with PT/OT. Case Management is reviewing the patient. I do not think it is appropriate for this patient to be staying at home. Will work with case management for placement, if patient agrees. Continue with acute cares for now.
[2017-05-16] MEDS: Ciprofloxacin in D5W 400 MG in Premix Bag 1 BAG IV SCH ×4 (01:36→13:59)
[2017-05-16] MEDS: Sodium Chloride 0.9% 1,000 ML IV SCH ×2 (04:48→13:02)
[2017-05-16 06:45] LABS: CHLORIDE,CL 108 mmol/L (98-107); SODIUM,NA 141 mmol/L (136-145)
[2017-05-16] MEDS: glyBURIDE 5 MG Tab PO SCH ×2 (07:49→17:28)
[2017-05-16] MEDS: Lisinopril 5 MG Tab PO SCH (07:49)
[2017-05-16] MEDS: Clopidogrel 75 MG Tab PO SCH (07:49)
[2017-05-16] MEDS: Nicotine 21 MG/24 Hr Patch TRDERM SCH (07:49)
[2017-05-16] MEDS: Simvastatin 40 MG Tab PO SCH (07:49)
[2017-05-16] MEDS: Ezetimibe 10 MG Tab PO SCH (07:50)
[2017-05-16] MEDS: metFORMIN 500 MG Tab PO SCH ×2 (07:50→17:28)
[2017-05-16] MEDS: Triamcinolone Acetonide 0.1% Crm 15 GM Tube TOP SCH ×2 (07:50→22:10)
[2017-05-16] MEDS: Insulin Regular, Human 100 Units/ML 3 ML Vial SUBCUT SCH ×3 (07:51→17:28)
[2017-05-16] MEDS: Acetaminophen 325 MG Tab PO PRN ×2 (07:51→17:28)
[2017-05-16] MEDS ORDERED: Calcium Chloride 10% 1 GM/10 ML Syringe IVPUSH ONE (08:56)
[2017-05-16] MEDS ORDERED: Magnesium Sulfate/Water 4 GM in Premix Bag 1 BAG IV ONE (09:45)
[2017-05-16] MEDS: Folic Acid 1 MG Tab PO SCH (11:33)
[2017-05-16] MEDS ORDERED: Lidocaine 2% 10 ML Amp INJECT ONE (12:09)
[2017-05-16] MEDS ORDERED: Sodium Chloride 0.9% 10 ML Syringe FLUSH PRN (13:47)
--- NOTE | 2017-05-16 13:54 | PCM.PN ---
- General Info Date of Service: 05/16/17 Admission Dx/Problem (Free Text): Admission Diagnosis/Problem Admission Diagnosis/Problem Urinary tract infection in male Hyperglycemia in the setting of Uncontrolled Diabetes Type II Acute Dermatitis Essential Hypertension Mixed Hyperlipidemia Malnutrition, albumin 3.1 Nicotine Dependence Subjective Update: Patient states this morning he is resting comfortably. He offers no specific health concerns. He states he is eating and drinking ok. No issues with BM's or urination. No abdominal issues. He feels much more alert and oriented this morning. Patient denies any SOB. He does state he has some trouble with strength getting in and out of bed. Functional Status: Reports: Pain Controlled, Tolerating Diet, Ambulating, Urinating Pain Score: 0 - Review of Systems General: Reports: Weakness (legs when getting in/out of bed). Denies: Fever, Chills Pulmonary: Denies: Shortness of Breath, Cough, Sputum Cardiovascular: Denies: Chest Pain, Palpitations Gastrointestinal: Denies: Abdominal Pain, Nausea, Vomiting Skin: Reports: Rash (upper anterior chest wall and upper posterior back) Neurological: Reports: No Symptoms. Denies: Confusion, Dizziness, Headache - Patient Data Vitals - Most Recent: Last Vital Signs Temp 37.1 C 05/16/17 09:37 Pulse 88 05/16/17 09:37 Resp 16 05/16/17 09:37 BP 137/69 05/16/17 09:37 Pulse Ox 94 L 05/16/17 09:37 Weight - Most Recent: 47.174 kg I&O - Last 24 Hours: Intake & Output 05/15/17 05/16/17 05/16/17 22:59 06:59 14:59 Intake Total 1336 1517 40 Output Total 800 1350 600 Balance 536 167 -560 Lab Results Last 24 Hours: Laboratory Results - last 24 hr 05/14/17 05/14/17 05/15/17 Range/Units 07:09 08:20 17:23 WBC 6.8 (3.9-11.3) x10-3 ul RBC 4.27 L (4.52-5.90) x10-6 ul Hgb 11.9 L (14.0-18.0) gm/dL Hct 36.3 L (42.0-52.0) % MCV 85 (83-99) fL MCH 27.9 L (28.0-32.0) pg MCHC 32.9 (32.0-36.0) g/dL RDW 14.4 (11.2-15.2) RDW Coeff of [place] (10.0-15.0) % Plt Count 218 (150-400) x10-3 ul Neut % (Auto) (50.0-80.0) % Lymph % (Auto) (25.0-50.0) % [place] % (Auto) (2.0-11.0) % Eos % (Auto) (0.0-4.0) % Baso % (Auto) (0.2-1.2) % Neutrophils % (Manual) 57 % Band Neuts % (Manual) 11 % Lymphocytes % (Manual) 28 % Monocytes % (Manual) 2 % Eosinophils % (Manual) 1 % Basophils % (Manual) 1 % Neutrophils # (Manual) 3.88 (1.80-7.00) x10-3 ul Band Neutrophils # Man 0.75 H (0.00-0.70) x10-3 ul Lymphocytes # (Manual) 1.90 (1.00-4.80) x10-3 ul Monocytes # (Manual) 0.14 (0.00-0.80) x10-3 ul Eosinophils # (Manual) 0.07 (0.00-0.45) x10-3 ul Basophils # (Manual) 0.07 (0.00-0.20) x10-3 ul RBC/WBC/PLT Morphology Abnormal Platelet Estimate Adequate RBC Fragments 1+ Smear Path Review Path rpt Absolute Retic 0.0278 (0.0200-0.1000) Percent Retic 0.7 (0.3-2.2) % Sodium (136-145) mmol/L Potassium (3.5-5.1) mmol/L Chloride (98-107) mmol/L Carbon Dioxide (21-32) mmol/L BUN (7-18) mg/dL Creatinine (0.70-1.30) mg/dL Est Cr Clr Drug Dosing mL/min Estimated GFR (MDRD) Glucose (74-106) mg/dL POC Glucose 195 H (74-106) mg/dL Calcium (8.5-10.1) mg/dL Magnesium (1.8-2.4) mg/dL TSH, Ultra Sensitive (0.358-3.74) uIU/mL Urine Creatinine 75 mg/dL Ur Microalbumin mg/dl 16.6 mg/dL 05/16/17 05/16/17 05/16/17 Range/Units 06:18 06:20 06:20 WBC 5.7 (3.9-11.3) x10-3 ul RBC 3.98 L (4.52-5.90) x10-6 ul Hgb 11.3 L (14.0-18.0) gm/dL Hct 34.8 L (42.0-52.0) % MCV 87.4 (83-99) fL MCH 28.4 (28.0-32.0) pg MCHC 32.5 (32.0-36.0) g/dL RDW (11.2-15.2) RDW Coeff of [place] 14.2 (10.0-15.0) % Plt Count 298 (150-400) x10-3 ul Neut % (Auto) 61.0 (50.0-80.0) % Lymph % (Auto) 25.3 (25.0-50.0) % [place] % (Auto) 10.2 (2.0-11.0) % Eos % (Auto) 2.8 (0.0-4.0) % Baso % (Auto) 0.7 (0.2-1.2) % Neutrophils % (Manual) % Band Neuts % (Manual) % Lymphocytes % (Manual) % Monocytes % (Manual) % Eosinophils % (Manual) % Basophils % (Manual) % Neutrophils # (Manual) (1.80-7.00) x10-3 ul Band Neutrophils # Man (0.00-0.70) x10-3 ul Lymphocytes # (Manual) (1.00-4.80) x10-3 ul Monocytes # (Manual) (0.00-0.80) x10-3 ul Eosinophils # (Manual) (0.00-0.45) x10-3 ul Basophils # (Manual) (0.00-0.20) x10-3 ul RBC/WBC/PLT Morphology Platelet Estimate RBC Fragments Smear Path Review Absolute Retic (0.0200-0.1000) Percent Retic (0.3-2.2) % Sodium 141 (136-145) mmol/L Potassium 3.9 (3.5-5.1) mmol/L Chloride 108 H (98-107) mmol/L Carbon Dioxide 26 (21-32) mmol/L BUN 14 (7-18) mg/dL Creatinine 0.8 (0.70-1.30) mg/dL Est Cr Clr Drug Dosing 48.32 mL/min Estimated GFR (MDRD) > 60 Glucose 172 H (74-106) mg/dL POC Glucose 165 H (74-106) mg/dL Calcium 7.4 L (8.5-10.1) mg/dL Magnesium 1.2 L (1.8-2.4) mg/dL TSH, Ultra Sensitive (0.358-3.74) uIU/mL Urine Creatinine mg/dL Ur Microalbumin mg/dl mg/dL 05/16/17 05/16/17 Range/Units 06:20 11:26 WBC (3.9-11.3) x10-3 ul RBC (4.52-5.90) x10-6 ul Hgb (14.0-18.0) gm/dL Hct (42.0-52.0) % MCV (83-99) fL MCH (28.0-32.0) pg MCHC (32.0-36.0) g/dL RDW (11.2-15.2) RDW Coeff of [place] (10.0-15.0) % Plt Count (150-400) x10-3 ul Neut % (Auto) (50.0-80.0) % Lymph % (Auto) (25.0-50.0) % [place] % (Auto) (2.0-11.0) % Eos % (Auto) (0.0-4.0) % Baso % (Auto) (0.2-1.2) % Neutrophils % (Manual) % Band Neuts % (Manual) % Lymphocytes % (Manual) % Monocytes % (Manual) % Eosinophils % (Manual) % Basophils % (Manual) % Neutrophils # (Manual) (1.80-7.00) x10-3 ul Band Neutrophils # Man (0.00-0.70) x10-3 ul Lymphocytes # (Manual) (1.00-4.80) x10-3 ul Monocytes # (Manual) (0.00-0.80) x10-3 ul Eosinophils # (Manual) (0.00-0.45) x10-3 ul Basophils # (Manual) (0.00-0.20) x10-3 ul RBC/WBC/PLT Morphology Platelet Estimate RBC Fragments Smear Path Review Absolute Retic (0.0200-0.1000) Percent Retic (0.3-2.2) % Sodium (136-145) mmol/L Potassium (3.5-5.1) mmol/L Chloride (98-107) mmol/L Carbon Dioxide (21-32) mmol/L BUN (7-18) mg/dL Creatinine (0.70-1.30) mg/dL Est Cr Clr Drug Dosing mL/min Estimated GFR (MDRD) Glucose (74-106) mg/dL POC Glucose 219 H (74-106) mg/dL Calcium (8.5-10.1) mg/dL Magnesium (1.8-2.4) mg/dL TSH, Ultra Sensitive 2.754 (0.358-3.74) uIU/mL Urine Creatinine mg/dL Ur Microalbumin mg/dl mg/dL Javier Results Last 24 Hours: Microbiology 05/16/17 12:30 GUSTAVO Preparation - Final Skin / Skin Scrapings - Chest 05/13/17 09:28 Aerobic Blood Culture - Preliminary Blood - Venous - Lab Draw NO GROWTH AFTER 3 DAYS Anaerobic Blood Culture - Final 05/13/17 09:21 Aerobic Blood Culture - Preliminary Blood - Venous NO GROWTH AFTER 3 DAYS Anaerobic Blood Culture - Final 05/14/17 16:00 Gram Stain - Final Serous Fluid Wound Culture - Preliminary Staphylococcus Coagulase Neg Staphylococcus Coagulase Neg#2 Med Orders - Current: Current Medications Acetaminophen (Tylenol) 650 mg PO Q4H PRN PRN Reason: Pain (Mild 1-3)/fever Last Admin: 05/16/17 07:51 Dose: 650 mg Clopidogrel Bisulfate (Plavix) 75 mg PO DAILY [facility] Last Admin: 05/16/17 07:49 Dose: 75 mg Ezetimibe (Zetia) 10 mg PO DAILY [facility] Last Admin: 05/16/17 07:50 Dose: 10 mg Folic Acid (Folic Acid) 1 mg PO DAILY [facility] Last Admin: 05/16/17 11:33 Dose: 1 mg Glyburide (Micronase) [facility] [place] Last Admin: 05/16/17 07:49 Dose: 2.5 mg Ciprofloxacin/Dextrose 400 mg/ (Premix) 200 mls @ 200 mls/hr IV Q12H [facility] Last Admin: 05/16/17 01:36 Dose: 200 mls/hr Insulin Human Regular (Humulin R) 0 unit SUBCUT TIDAC [facility] PRN Reason: Protocol Last Admin: 05/16/17 11:36 Dose: 2 unit Lisinopril (Prinivil) 5 mg PO DAILY [facility] Last Admin: 05/16/17 07:49 Dose: 5 mg Metformin HCl (Glucophage) 1,000 mg PO BIDMEALS [facility] Last Admin: 05/16/17 07:50 Dose: 1,000 mg Multivitamins/Minerals (Thera M Plus) 1 tab PO DAILY [facility] Nicotine (Habitrol) 21 mg TRDERM DAILY [facility] Last Admin: 05/16/17 07:49 Dose: 21 mg Ondansetron HCl (Zofran Odt) 4 mg PO Q6H PRN PRN Reason: nausea, able to take PO Simvastatin (Zocor) 40 mg PO DAILY [facility] Last Admin: 05/16/17 07:49 Dose: 40 mg Sodium Chloride (Saline Flush) 10 ml FLUSH ASDIRECTED PRN PRN Reason: Keep Vein Open Sodium Chloride (Saline Flush) 10 ml FLUSH ASDIRECTED PRN PRN Reason: Keep Vein Open Triamcinolone Acetonide (Triamcinolone Acetonide 0.1% Crm) 0 gm TOP BID [facility] Last Admin: 05/16/17 07:50 Dose: 1 applic Discontinued Medications Alendronate Sodium (Fosamax) 70 mg PO WEEKLY [facility] Aspirin (Halfprin) 81 mg PO WITHBREAKFAST [facility] Last Admin: 05/14/17 08:37 Dose: 81 mg Calcium Gluconate (Calcium Gluconate) 1 gm IVPUSH ONETIME ONE Stop: 05/15/17 09:53 Last Admin: 05/15/17 10:47 Dose: 1 gm Ceftriaxone Sodium (Rocephin) 1 gm IVPUSH ONETIME ONE Stop: 05/13/17 08:58 Last Admin: 05/13/17 09:09 Dose: 1 gm Diphtheria/Tetanus/Acell Pertussis (Adacel) 0.5 ml IM .ONCE ONE Stop: 05/13/17 09:23 Last Admin: 05/15/17 14:49 Dose: 0.5 ml Diphtheria/Tetanus/Acell Pertussis (Adacel) 0.5 ml IM .ONCE ONE Stop: 05/14/17 12:01 Sodium Chloride (Normal Saline) 1,000 mls @ 125 mls/hr IV ASDIRECTED BEN Last Admin: 05/16/17 13:02 Dose: 125 mls/hr Magnesium Sulfate 4 gm/ Premix 100 mls @ 25 mls/hr IV ONETIME ONE Stop: 05/14/17 20:01 Last Admin: 05/14/17 16:39 Dose: 25 mls/hr Magnesium Sulfate 4 gm/ Premix 100 mls @ 25 mls/hr IV ONETIME ONE Stop: 05/16/17 13:44 Last Admin: 05/16/17 09:58 Dose: 25 mls/hr Influenza Virus Vaccine (Fluzone High-Dose ) 180 mcg IM .ONCE ONE Stop: 05/13/17 09:46 Last Admin: 05/15/17 14:48 Dose: 180 mcg Influenza Virus Vaccine (Fluzone High-Dose ) 180 mcg IM .ONCE ONE Stop: 05/14/17 12:01 Insulin Human Regular (Humulin R) 5 unit IV ONETIME ONE Stop: 05/13/17 13:42 Last Admin: 05/13/17 13:49 Dose: 5 unit Lidocaine HCl (Xylocaine-Mpf 2% (Sterile-Kanu)) 10 ml INJECT ONETIME ONE Stop: 05/16/17 12:10 Last Admin: 05/16/17 12:37 Dose: 10 ml Potassium Chloride (Klor-Con M20) 40 meq PO ONETIME ONE Stop: 05/14/17 16:03 Last Admin: 05/14/17 16:41 Dose: 40 meq Triamcinolone Acetonide (Triamcinolone Acetonide 0.1% Crm) 15 gm TOP ONETIME ONE Stop: 05/13/17 07:45 Last Admin: 05/13/17 08:45 Dose: 1 applic - Exam Quality Assessment: DVT Prophylaxis (early ambulation), Skin Breakdown General: Alert, Oriented, Cooperative, No Acute Distress Lungs: Clear to Auscultation, Normal Respiratory Effort, Decreased Breath Sounds Cardiovascular: Regular Rate, Regular Rhythm, No Murmurs GI/Abdominal Exam: Soft, Non-Tender, Abnormal Bowel Sounds (Hypoactive) Peripheral Pulses: 2+: Radial (L), Radial (R) Skin: Warm, Dry, Rash (dermatitis to upper right anterior chest wall and upper posterior of back; scab formation; scant blistering with serous weeping; rash does not look like it has much improvement over the past couple days) Neurological: No New Focal Deficit - Problem List & Annotations (1) UTI, Urinary tract infectious disease SNOMED Code(s): 11037417 Code(s): N39.0 - URINARY TRACT INFECTION, SITE NOT SPECIFIED Status: Acute Priority: Medium Current Visit: Yes (2) Weakness SNOMED Code(s): 19277581 Code(s): R53.1 - WEAKNESS Status: Acute Priority: Medium Current Visit : Yes (3) Hyperglycemia due to type 2 diabetes mellitus SNOMED Code(s): 181574484832388 Code(s): E11.65 - TYPE 2 DIABETES MELLITUS WITH HYPERGLYCEMIA Status: Acute Priority: High Current Visit: Yes Qualifiers: Diabetes mellitus terminal make up operator insulin use: without terminal make up operator use Qualified Code(s): E11.65 - Type 2 diabetes mellitus with hyperglycemia (4) Dermatitis SNOMED Code(s): 63075461 Code(s): L30.9 - DERMATITIS, UNSPECIFIED Status: Acute Priority: Medium Current Visit: Yes Onset Date: ~05/09/17 (5) Malnutrition SNOMED Code(s): 27817135 Code(s): E46 - UNSPECIFIED PROTEIN-CALORIE MALNUTRITION Status: Acute Current Visit: Yes Qualifiers: Malnutrition type: protein-calorie malnutrition Protein-calorie malnutrition severity: mild Qualified Code(s): E44.1 - Mild protein-calorie malnutrition (6) Nicotine dependence with current use SNOMED Code(s): 227623262 Code(s): F17.200 - NICOTINE DEPENDENCE, UNSPECIFIED, UNCOMPLICATED Status: Chronic Current Visit: Yes (7) Coronary artery disease SNOMED Code(s): 27138202 Code(s): I25.10 - ATHSCL HEART DISEASE OF [place] CORONARY ARTERY W/O ANG PCTRS Status: Chronic Priority: Medium Current Visit: No Qualifiers: Coronary Disease-Associated Artery/Lesion type: [place] artery [place] vs. transplanted heart: [place] heart Associated angina: without angina Qualified Code(s): I25.10 - Atherosclerotic heart disease of [place] coronary artery without angina pectoris (8) Essential hypertension SNOMED Code(s): 23287966 Code(s): I10 - ESSENTIAL (PRIMARY) HYPERTENSION Status: Chronic Priority : Medium Current Visit: No (9) Mixed hyperlipidemia due to type 2 diabetes mellitus SNOMED Code(s): 48403257 Code(s): E11.69 - TYPE 2 DIABETES MELLITUS WITH OTHER SPECIFIED COMPLICATION ; E78.2 - MIXED HYPERLIPIDEMIA Status: Chronic Priority: Medium Current Visit: No - Problem List Review Problem List Initiated/Reviewed/Updated: Yes - My Orders Last 24 Hours: My Active Orders 05/16/17 09:22 ACTH [REF] Stat ALDOSTERONE [REF] Stat FREE T3 [REF] Stat FREE T4 [REF] Stat PTH INTACT INCL CALCIUM [REF] Stat THYROXINE (T4) [REF] Stat TOTAL T3 [REF] Stat 05/16/17 10:39 Consult to Occupational Therapy [OT Evaluation and Treatment] [CONS] Routine 05/16/17 10:45 Folic Acid 1 mg PO DAILY 05/16/17 12:45 Multivitamins w-Iron/Ca/FA/Min [Thera M Plus] 1 tab PO DAILY 05/16/17 13:47 Sodium Chloride 0.9% [Saline Flush] 10 ml FLUSH ASDIRECTED PRN Convert IV to Saline Lock [OM.PC] Routine - Plan Plan:: 81 yo male patient hospital day #4, with a PMH of HTN, CAD, Uncontrolled DM, mixed hyperlipidemia, and cigarette smoking, was admitted to the acute care floor at [facility] for a diagnosis of UTI, weakness, hyperglycemia in the setting of DM Type II, and malnutrition. 1. UTI - continue IV Cipro for today, change to PO tomorrow; PO fluid encouragement, will d/c IVF cap IV today as patient is taking in PO fluids well 2. Weakness - PT signed off patient; OT will continue to see for ADL's; ambulate in hallway with nursing staff; Mag replacement IV today 3. Hyperglycemia with DM Type II - improved, but not optimal, A1C 12.4 ; continue with SSI, ADA diet; may consider long acting insulin at discharge if blood sugars are not well controlled on PO meds 4. Malnutrition - mild at this time, Mag replacement IV, may need PO supplement daily; start Folate and MultiVit PO today 5. Hypertension - Lisinopril 5mg daily, ADA diet, low salt; BUN/Creat normal today 6. Mixed hyperlipidemia - LDL much improved from last check, ADA diet, continue with current lipid drugs 7. Nicotine dependence - Nicotine patch 21mg daily; discussed smoking cessation; 8. CAD - no ASA, patient already on Plavix; ADA diet, low sodium; continue with Plavix 9. Code 3 10. Wound culture of right upper chest wall rash showed Coag Neg Staph, probably contaminant; Will bx right anterior chest wall today to see if path review can narrow down etiology; GUSTAVO negative for fungal etiology; ?? use of steroids as blood sugars continue to be elevated; may check serum for Herpetic/ Shingles cause. 11. Hypomagnesemia - replace IV today; check Thyroid studies for persistent low Mag level Patient does not wish to be transferred to a higher level of care should the need arise. DVT prophylaxis early ambulation. Will continue to hold Fosamax until discharge. BUN/Creat normal today, uremia resolved. Continue with OT services. Await punch bx results. Dr. Bindu Mcmahon will assume care of this patient on 05/17/2017. I would suspect patient may need a few days on Swing Bed to work with OT. Case Management is reviewing the patient. I do not think it is appropriate for this patient to go home. Will work with case management for placement, if patient agrees. Transfer to Swing Bed tomorrow.
[2017-05-16] MEDS: Multivitamins with Iron/Calcium/Folic Acid/Minerals Tab PO SCH (13:59)
--- NOTE | 2017-05-16 14:17 | PCM.PRNOTE ---
- Free Text/Narrative Note: Skin Punch Biopsy: 05/16/2017 11:39am Verbal consent obtained. Risks and benefits thoroughly discussed with patient and patient wished to proceed. Right anterior chest wall was prepped and draped in a sterile fashion. 3cc of 2% Lidocaine was locally infiltrated into the dermis. Once adequate anesthesia was achieved, an 8mm punch was used to biopsy skin rash site. Low grade venous ooze. Punch site closed with 3 sutures using 4- 0 Nylon; hemostasis achieved. Small amount of triple abx ointment applied and site cover with a bandaid. Patient tolerated procedure well. No complications. Skin biopsy sent to lab for pathology.
[2017-05-17] MEDS: Ciprofloxacin in D5W 400 MG in Premix Bag 1 BAG IV SCH ×2 (01:57)
[2017-05-17] MEDS: Insulin Regular, Human 100 Units/ML 3 ML Vial SUBCUT SCH ×2 (06:01→11:28)
[2017-05-17 06:57] LABS: CHLORIDE,CL 107 mmol/L (98-107); SODIUM,NA 141 mmol/L (136-145)
[2017-05-17] MEDS: Nicotine 21 MG/24 Hr Patch TRDERM SCH (08:34)
[2017-05-17] MEDS: Ezetimibe 10 MG Tab PO SCH (08:35)
[2017-05-17] MEDS: metFORMIN 500 MG Tab PO SCH (08:35)
[2017-05-17] MEDS: Lisinopril 5 MG Tab PO SCH (08:35)
[2017-05-17] MEDS: Simvastatin 40 MG Tab PO SCH (08:35)
[2017-05-17] MEDS: Folic Acid 1 MG Tab PO SCH (08:35)
[2017-05-17] MEDS: glyBURIDE 5 MG Tab PO SCH (08:36)
[2017-05-17] MEDS: Clopidogrel 75 MG Tab PO SCH (08:36)
[2017-05-17] MEDS: Triamcinolone Acetonide 0.1% Crm 15 GM Tube TOP SCH (08:36)
[2017-05-17] MEDS: Multivitamins with Iron/Calcium/Folic Acid/Minerals Tab PO SCH (08:36)
[2017-05-17 14:16] VITALS: BP 124/65
--- NOTE | 2017-05-17 15:10 | PCM.DCSUM1 ---
Discharge Summary - Hospital Course Free Text/Narrative:: 81 year old male admitted for hyperglycemia and a fall. Patient has been living with sister. Sister was reportedly aware of the fall but unable to help him get up and opted to let him sleep on the floor. - Discharge Data Discharge Date: 05/17/17 Discharge Disposition: DC/Tfer W/I Hosp To Swing 61 Condition: Good - Discharge Diagnosis/Problem(s) (1) Dermatitis SNOMED Code(s): 69729012 ICD Code: L30.9 - DERMATITIS, UNSPECIFIED Status: Acute Priority: Medium Onset Date: ~05/09/17 (2) Hyperglycemia due to type 2 diabetes mellitus SNOMED Code(s): 602005925268410 ICD Code: E11.65 - TYPE 2 DIABETES MELLITUS WITH HYPERGLYCEMIA Status: Acute Priority: High Qualifiers: Diabetes mellitus chcf insulin use: without detail assembler use Qualified Code(s): E11.65 - Type 2 diabetes mellitus with hyperglycemia (3) Malnutrition SNOMED Code(s): 29115223 ICD Code: E46 - UNSPECIFIED PROTEIN-CALORIE MALNUTRITION Status: Acute Qualifiers: Malnutrition type: protein-calorie malnutrition Protein-calorie malnutrition severity: mild Qualified Code(s): E44.1 - Mild protein-calorie malnutrition (4) UTI, Urinary tract infectious disease SNOMED Code(s): 44259986 ICD Code: N39.0 - URINARY TRACT INFECTION, SITE NOT SPECIFIED Status: Acute Priority: Medium (5) Weakness SNOMED Code(s): 50824042 ICD Code: R53.1 - WEAKNESS Status: Acute Priority: Medium (6) Alcohol abuse SNOMED Code(s): 50117664 ICD Code: F10.10 - ALCOHOL ABUSE, UNCOMPLICATED Status: Acute Priority: Medium (7) Fall on same level from stumbling SNOMED Code(s): 461286528 ICD Code: W01.0XXA - FALL SAME LEV FROM SLIP/TRIP W/O STRIKE AGAINST OBJECT, INIT Status: Acute Priority: Medium - Patient Summary/Data Consults: Consultations 05/13/17 10:41 Consult to Case Management [CONS] Routine OT Evaluation and Treatment [CONS] Routine PT Evaluation and Treatment [CONS] Routine 05/16/17 10:39 Consult to Occupational Therapy [OT Evaluation and Treatment] [CONS] Routine Hospital Course: Patient was admitted to the hospital. UTI was treated with Cipro. Physical therapy and occupational therapy were ordered. plier worker asked to assist with discharge planning. Patient's blood sugars responded nicely to therapy. His blood pressure remains slightly elevated. Patient is tolerating a regular diet. He is voiding and stooling without difficulty. He is ambulating with the assistance of a walker. - Patient Instructions Diet: Heart Healthy Diet Driving: Do Not Drive - Discharge Plan Home Medications: Home Meds Calcium Carbonate [Tums] 2 tab.chew PO DAILY 02/24/13 [History] FA/Lycopene/Lut/MV,Ca,Iron,Min [Centrum] 1 tab PO DAILY 02/24/13 [History] Clopidogrel [Plavix] 75 mg PO DAILY 06/13/14 [History] Ezetimibe/Simvastatin [Vytorin 10-40 mg Tablet] 1 each PO DAILY 06/13/14 [ History] Acetaminophen [Tylenol] 650 mg PO Q4H PRN tablet 05/17/17 [Rx] Ciprofloxacin [Ciprofloxacin HCl] 250 mg PO BID@0700,1900 tablet 05/17/17 [Rx] Folic Acid 1 mg PO DAILY tablet 05/17/17 [Rx] Insulin Regular, Human [HumuLIN R] 0 unit SUBCUT TIDAC vial 05/17/17 [Rx] Lisinopril [Prinivil] 5 mg PO DAILY tablet 05/17/17 [Rx] Triamcinolone Acetonide [IJD: Triamcinolone Acetonide 0.1% Crm] 0 gm TOP BID tube 05/17/17 [Rx] glyBURIDE [Micronase] 2.5 mg PO BIDM tablet 05/17/17 [Rx] metFORMIN [Glucophage] 1,000 mg PO BIDMEALS tablet 05/17/17 [Rx] Forms: ED Department Discharge Referrals: Bindu Mcmahon DO [Primary Care Provider] - - Discharge Summary/Plan Comment DC Time >30 min.: No Discharge Summary/Plan Comment: Patient will be transferred to swing bed. He will continue with work with occupational therapy. We will also continue to assess his home safety. Patient was last seen in clinic April, with refills of his chronic disease medications to last until October,, demonstrating significant non- compliance with home therapy. Initial assessment reveals need for 24/7 supervision. Patient states he "has learned a lesson" and would like to go home. However, I do not feel this is a safe environment for him. The possibility of transitional [place] care following his stay in swingbed. He will give this some consideration. - General Info Date of Service: 05/17/17 Admission Dx/Problem (Free Text: Admission Diagnosis/Problem Admission Diagnosis/Problem Urinary tract infection in male Hyperglycemia in the setting of Uncontrolled Diabetes Type II Acute Dermatitis Essential Hypertension Mixed Hyperlipidemia Malnutrition, albumin 3.1 Nicotine Dependence - Review of Systems General: Reports: Weakness HEENT: Reports: No Symptoms Pulmonary: Reports: No Symptoms. Denies: Shortness of Breath Cardiovascular: Reports: No Symptoms. Denies: Chest Pain Gastrointestinal: Reports: No Symptoms. Denies: Abdominal Pain, Constipation, Diarrhea Genitourinary: Reports: No Symptoms Musculoskeletal: Reports: No Symptoms - Patient Data Vitals - Most Recent: Last Vital Signs Temp 36.6 C 05/17/17 14:00 Pulse 105 H 05/17/17 14:00 Resp 16 05/17/17 14:00 BP 124/65 05/17/17 14:00 Pulse Ox 95 05/17/17 14:00 Weight - Most Recent: 47.174 kg I&O - Last 24 hours: Intake & Output 05/17/17 05/17/17 05/17/17 06:59 14:59 22:59 Intake Total 200 360 Output Total 350 400 Balance -150 -40 Lab Results - Last 24 hrs: Laboratory Results - last 24 hr 05/16/17 05/16/17 05/16/17 Range/Units 09:22 09:22 09:22 WBC (4.0-10.0) x10^3/uL RBC (4.5-6.0) x10^6/uL Hgb (14.0-18.0) g/dL Hct (40.0-52.0) % MCV (78.0-93.0) fL MCH (26.0-32.0) pg MCHC (32.0-36.0) g/dL RDW Coeff of Leora (10.0-15.0) % Plt Count (130-400) x10^3/uL Neut % (Auto) (50.0-80.0) % Lymph % (Auto) (25.0-50.0) % [place] % (Auto) (2.0-11.0) % Eos % (Auto) (0.0-4.0) % Baso % (Auto) (0.2-1.2) % Sodium (136-145) mmol/L Potassium (3.5-5.1) mmol/L Chloride (98-107) mmol/L Carbon Dioxide (21-32) mmol/L BUN (7-18) mg/dL Creatinine (0.70-1.30) mg/dL Est Cr Clr Drug Dosing mL/min Estimated GFR (MDRD) Glucose (74-106) mg/dL POC Glucose (74-106) mg/dL Calcium (8.5-10.1) mg/dL Phosphorus (2.6-4.7) mg/dL Magnesium (1.8-2.4) mg/dL Free T4 1.15 (0.58-1.64) ng/dL Free T3 pg/mL 3.18 (2.50-3.90) pg/mL Total T3 52 L (87-178) ng/dL 05/16/17 05/17/17 05/17/17 Range/Units 16:50 05:49 06:20 WBC 5.9 (4.0-10.0) x10^3/uL RBC 4.02 L (4.5-6.0) x10^6/uL Hgb 11.3 L (14.0-18.0) g/dL Hct 34.9 L (40.0-52.0) % MCV 86.8 (78.0-93.0) fL MCH 28.1 (26.0-32.0) pg MCHC 32.4 (32.0-36.0) g/dL RDW Coeff of Leora 14.2 (10.0-15.0) % Plt Count 337 (130-400) x10^3/uL Neut % (Auto) 61.5 (50.0-80.0) % Lymph % (Auto) 24.6 L (25.0-50.0) % [place] % (Auto) 10.9 (2.0-11.0) % Eos % (Auto) 2.5 (0.0-4.0) % Baso % (Auto) 0.5 (0.2-1.2) % Sodium (136-145) mmol/L Potassium (3.5-5.1) mmol/L Chloride (98-107) mmol/L Carbon Dioxide (21-32) mmol/L BUN (7-18) mg/dL Creatinine (0.70-1.30) mg/dL Est Cr Clr Drug Dosing mL/min Estimated GFR (MDRD) Glucose (74-106) mg/dL POC Glucose 159 H 98 (74-106) mg/dL Calcium (8.5-10.1) mg/dL Phosphorus (2.6-4.7) mg/dL Magnesium (1.8-2.4) mg/dL Free T4 (0.58-1.64) ng/dL Free T3 pg/mL (2.50-3.90) pg/mL Total T3 (87-178) ng/dL 05/17/17 05/17/17 Range/Units 06:20 11:26 WBC (4.0-10.0) x10^3/uL RBC (4.5-6.0) x10^6/uL Hgb (14.0-18.0) g/dL Hct (40.0-52.0) % MCV (78.0-93.0) fL MCH (26.0-32.0) pg MCHC (32.0-36.0) g/dL RDW Coeff of [place]ora (10.0-15.0) % Plt Count (130-400) x10^3/uL Neut % (Auto) (50.0-80.0) % Lymph % (Auto) (25.0-50.0) % [place] % (Auto) (2.0-11.0) % Eos % (Auto) (0.0-4.0) % Baso % (Auto) (0.2-1.2) % Sodium 141 (136-145) mmol/L Potassium 3.5 (3.5-5.1) mmol/L Chloride 107 (98-107) mmol/L Carbon Dioxide 26 (21-32) mmol/L BUN 10 (7-18) mg/dL Creatinine 0.7 (0.70-1.30) mg/dL Est Cr Clr Drug Dosing 55.22 mL/min Estimated GFR (MDRD) > 60 Glucose 102 (74-106) mg/dL POC Glucose 133 H (74-106) mg/dL Calcium 7.7 L (8.5-10.1) mg/dL Phosphorus 2.3 L (2.6-4.7) mg/dL Magnesium 1.6 L (1.8-2.4) mg/dL Free T4 (0.58-1.64) ng/dL Free T3 pg/mL (2.50-3.90) pg/mL Total T3 (87-178) ng/dL JOVAN Results - Last 24 hrs: Microbiology 05/13/17 09:28 Aerobic Blood Culture - Preliminary Blood - Venous - Lab Draw NO GROWTH AFTER 4 DAYS Anaerobic Blood Culture - Final 05/13/17 09:21 Aerobic Blood Culture - Preliminary Blood - Venous NO GROWTH AFTER 4 DAYS Anaerobic Blood Culture - Final 05/14/17 16:00 Gram Stain - Final Serous Fluid Wound Culture - Preliminary Staphylococcus Coagulase Neg Staphylococcus Coagulase Neg#2 05/16/17 12:30 GUSTAVO Preparation - Final Skin / Skin Scrapings - Chest Med Orders - Current: Current Medications Discontinued Medications Acetaminophen (Tylenol) 650 mg PO Q4H PRN PRN Reason: Pain (Mild 1-3)/fever Last Admin: 05/16/17 17:28 Dose: 650 mg Alendronate Sodium (Fosamax) 70 mg PO WEEKLY [facility] Aspirin (Halfprin) 81 mg PO WITHBREAKFAST [facility] Last Admin: 05/14/17 08:37 Dose: 81 mg Calcium Gluconate (Calcium Gluconate) 1 gm IVPUSH ONETIME ONE Stop: 05/15/17 09:53 Last Admin: 05/15/17 10:47 Dose: 1 gm Ceftriaxone Sodium (Rocephin) 1 gm IVPUSH ONETIME ONE Stop: 05/13/17 08:58 Last Admin: 05/13/17 09:09 Dose: 1 gm Ciprofloxacin (Ciprofloxacin Hcl) 250 mg PO BID@0700,1900 [facility] Stop: 05/19/17 19:01 Clopidogrel Bisulfate (Plavix) 75 mg PO DAILY [facility] Last Admin: 05/17/17 08:36 Dose: 75 mg Diphtheria/Tetanus/Acell Pertussis (Adacel) 0.5 ml IM .ONCE ONE Stop: 05/13/17 09:23 Last Admin: 05/15/17 14:49 Dose: 0.5 ml Diphtheria/Tetanus/Acell Pertussis (Adacel) 0.5 ml IM .ONCE ONE Stop: 05/14/17 12:01 Ezetimibe (Zetia) 10 mg PO DAILY [facility] Last Admin: 05/17/17 08:35 Dose: 10 mg Folic Acid (Folic Acid) 1 mg PO DAILY [facility] Last Admin: 05/17/17 08:35 Dose: 1 mg Glyburide (Micronase) 2.5 mg PO BIDM [facility] Last Admin: 05/17/17 08:36 Dose: 2.5 mg Sodium Chloride (Normal Saline) 1,000 mls @ 125 mls/hr IV ASDIRECTED [facility] Last Admin: 05/16/17 13:02 Dose: 125 mls/hr Ciprofloxacin/Dextrose 400 mg/ (Premix) 200 mls @ 200 mls/hr IV Q12H [facility] Last Admin: 05/17/17 01:57 Dose: 200 mls/hr Magnesium Sulfate 4 gm/ Premix 100 mls @ 25 mls/hr IV ONETIME ONE Stop: 05/14/17 20:01 Last Admin: 05/14/17 16:39 Dose: 25 mls/hr Magnesium Sulfate 4 gm/ Premix 100 mls @ 25 mls/hr IV ONETIME ONE Stop: 05/16/17 13:44 Last Admin: 05/16/17 09:58 Dose: 25 mls/hr Influenza Virus Vaccine (Fluzone High-Dose ) 180 mcg IM .ONCE ONE Stop: 05/13/17 09:46 Last Admin: 05/15/17 14:48 Dose: 180 mcg Influenza Virus Vaccine (Fluzone High-Dose ) 180 mcg IM .ONCE ONE Stop: 05/14/17 12:01 Insulin Human Regular (Humulin R) [facility] Reason: Protocol Last Admin: 05/17/17 11:28 Dose: Not Given Insulin Human Regular (Humulin R) 5 unit IV ONETIME ONE Stop: 05/13/17 13:42 Last Admin: 05/13/17 13:49 Dose: 5 unit Lidocaine HCl (Xylocaine-Mpf 2% (Sterile-Kanu)) 10 ml INJECT ONETIME ONE Stop: 05/16/17 12:10 Last Admin: 05/16/17 12:37 Dose: 10 ml Lisinopril (Prinivil) 5 mg PO DAILY [facility] Last Admin: 05/17/17 08:35 Dose: 5 mg Metformin HCl (Glucophage) 1,000 mg PO BIDMEALS [facility] Last Admin: 05/17/17 08:35 Dose: 1,000 mg Multivitamins/Minerals (Thera M Plus) 1 tab PO DAILY [facility] Last Admin: 05/17/17 08:36 Dose: 1 tab Nicotine (Habitrol) 21 mg TRDERM DAILY [facility] Last Admin: 05/17/17 08:34 Dose: 21 mg Ondansetron HCl (Zofran Odt) 4 mg PO Q6H PRN PRN Reason: nausea, able to take PO Potassium Chloride (Klor-Con M20) 40 meq PO ONETIME ONE Stop: 05/14/17 16:03 Last Admin: 05/14/17 16:41 Dose: 40 meq Simvastatin (Zocor) 40 mg PO DAILY [facility] Last Admin: 05/17/17 08:35 Dose: 40 mg Sodium Chloride (Saline Flush) 10 ml FLUSH ASDIRECTED PRN PRN Reason: Keep Vein Open Triamcinolone Acetonide (Triamcinolone Acetonide 0.1% Crm) 15 gm TOP ONETIME ONE Stop: 05/13/17 07:45 Last Admin: 05/13/17 08:45 Dose: 1 applic Triamcinolone Acetonide (Triamcinolone Acetonide 0.1% Crm) 0 gm TOP BID [facility] Last Admin: 05/17/17 08:36 Dose: 1 applic - Exam Quality Assessment: Reports: Skin Breakdown (Left upper chest and back with crusted lesions suggestive of healing zoster) General: Reports: Alert, Oriented HEENT: Reports: Pupils Equal Lungs: Reports: Clear to Auscultation Cardiovascular: Reports: Regular Rate, Regular Rhythm GI/Abdominal Exam: Normal Bowel Sounds, Soft, Non-Tender (Male) Exam: Deferred Rectal (Males) Exam: Deferred Psy/Mental Status: Reports: Alert, Normal Affect, Normal Mood *Q Meaningful Use (DIS) - VTE *Q VTE Criteria *Q: VTE Mechanical Contraindications *Q: At Risk for Falls - Stroke *Q Stroke Criteria *Q: - AMI *Q AMI Criteria *Q:
[2017-05-17] MEDS ORDERED: Ciprofloxacin 250 MG Tab PO SCH (19:00)
== END 2017-05-17 15:03 | disposition swing bed (61) | DRG 690 ==
LOC: VM.ED 06:45 → VM.MS 08:57
PROVIDERS: ADMIT Nurse Practitioner Family; ATTEND Nurse Practitioner Family
PROC: 0JB63ZX Excision of Chest Subcutaneous Tissue and Fascia, Percutaneous Approach, Diagnostic (ICD-10-PCS; principal; 2017-05-16)
DX: N39.0 Urinary tract infection, site not specified (principal); R46.0 Very low level of personal hygiene; E11.9 Type 2 diabetes mellitus without complications; E44.1 Mild protein-calorie malnutrition; E11.65 Type 2 diabetes mellitus with hyperglycemia; L30.9 Dermatitis, unspecified; R21 Rash and other nonspecific skin eruption; F17.200 Nicotine dependence, unspecified, uncomplicated; R53.1 Weakness; E83.42 Hypomagnesemia; I10 Essential (primary) hypertension; Z95.5 Presence of coronary angioplasty implant and graft; E78.2 Mixed hyperlipidemia; F17.210 Nicotine dependence, cigarettes, uncomplicated; H91.90 Unspecified hearing loss, unspecified ear; I25.10 Atherosclerotic heart disease of native coronary artery without angina pectoris; Z86.73 Personal history of transient ischemic attack (TIA), and cerebral infarction without residual deficits; G89.29 Other chronic pain; M54.9 Dorsalgia, unspecified; M81.0 Age-related osteoporosis without current pathological fracture; Z79.84 Long term (current) use of oral hypoglycemic drugs; Z91.19 Patient's noncompliance with other medical treatment and regimen; Z79.82 Long term (current) use of aspirin; Z79.899 Other long term (current) drug therapy; W06.XXXA Fall from bed, initial encounter
CPT/HCPCS: 36415; 80053; 81001; 82550; 83605; 83880; 84484; 85025; 85610; 86140; 87086; 87186 ×2; 93005; 96361; 99285; J7030; 70450; 71046; 80048; 80061; 82024; 82043; 82088; 82310; 82570; 82800; 82962; 83036; 83735; 83970; 84100; 84436; 84439; 84443; 84480; 84481; 85008; 86694; 86695; 86696; 86787; 87040; 87070; 87088; 87205; 87220; 90471; 90662; 90715; 96374; 97161-GP; 97165-GO; 97535-GO; 99284-GF; A9270-GY; G0008; G0515-GO; J0610; J0696; J0744; J1815; J3475

== ENCOUNTER 2017-05-17 05:50 | Inpatient (IN) | payer MEDICARE, BC ==
[2017-05-17] MEDS ORDERED: Acetaminophen 325 MG Tab PO PRN (15:26)
[2017-05-17] MEDS: Insulin Regular, Human 100 Units/ML 3 ML Vial SUBCUT SCH (17:35)
[2017-05-17] MEDS: Ciprofloxacin 250 MG Tab PO SCH (18:21)
[2017-05-17] MEDS: glyBURIDE 5 MG Tab PO SCH (18:21)
[2017-05-17] MEDS: metFORMIN 500 MG Tab PO SCH (18:21)
[2017-05-17] MEDS: Triamcinolone Acetonide 0.1% Crm 15 GM Tube TOP SCH (20:13)
[2017-05-18] MEDS: Insulin Regular, Human 100 Units/ML 3 ML Vial SUBCUT SCH ×3 (06:12→17:23)
[2017-05-18] MEDS: Ciprofloxacin 250 MG Tab PO SCH ×2 (06:16→18:24)
[2017-05-18] MEDS: Ezetimibe 10 MG Tab PO SCH (08:44)
[2017-05-18] MEDS: Lisinopril 10 MG Tab PO SCH (08:44)
[2017-05-18] MEDS: Clopidogrel 75 MG Tab PO SCH (08:44)
[2017-05-18] MEDS: Folic Acid 1 MG Tab PO SCH (08:44)
[2017-05-18] MEDS: metFORMIN 500 MG Tab PO SCH ×2 (08:44→17:24)
[2017-05-18] MEDS: glyBURIDE 5 MG Tab PO SCH ×2 (08:44→17:24)
[2017-05-18] MEDS: Multivitamins with Iron/Calcium/Folic Acid/Minerals Tab PO SCH (08:44)
[2017-05-18] MEDS: Nicotine 21 MG/24 Hr Patch TRDERM SCH (08:45)
[2017-05-18] MEDS: Simvastatin 40 MG Tab PO SCH (08:45)
[2017-05-18] MEDS: Triamcinolone Acetonide 0.1% Crm 15 GM Tube TOP SCH ×2 (08:45→19:34)
[2017-05-18] MEDS ORDERED: Calcium Carbonate 750 MG Tab.Chew PO SCH (12:00)
[2017-05-19 05:20] VITALS: BP 137/64
[2017-05-19] MEDS: Insulin Regular, Human 100 Units/ML 3 ML Vial SUBCUT SCH (06:19)
[2017-05-19] MEDS: Ciprofloxacin 250 MG Tab PO SCH (06:20)
[2017-05-19] MEDS: Simvastatin 40 MG Tab PO SCH (07:31)
[2017-05-19] MEDS: glyBURIDE 5 MG Tab PO SCH (07:31)
[2017-05-19] MEDS: Ezetimibe 10 MG Tab PO SCH (07:31)
[2017-05-19] MEDS: Clopidogrel 75 MG Tab PO SCH (07:31)
[2017-05-19] MEDS: Nicotine 21 MG/24 Hr Patch TRDERM SCH (07:31)
[2017-05-19] MEDS: Folic Acid 1 MG Tab PO SCH (07:31)
[2017-05-19] MEDS: Multivitamins with Iron/Calcium/Folic Acid/Minerals Tab PO SCH (07:31)
[2017-05-19] MEDS: metFORMIN 500 MG Tab PO SCH (07:31)
[2017-05-19] MEDS: Lisinopril 10 MG Tab PO SCH (07:31)
[2017-05-19] MEDS: Triamcinolone Acetonide 0.1% Crm 15 GM Tube TOP SCH (07:32)
== END 2017-05-19 10:30 | disposition other institution (70) | DRG 690 ==
LOC: VM.MS 15:18
PROVIDERS: ADMIT Family Medicine; ATTEND Family Medicine
DX: N39.0 Urinary tract infection, site not specified (principal); E44.1 Mild protein-calorie malnutrition; R53.1 Weakness; E11.65 Type 2 diabetes mellitus with hyperglycemia; L30.9 Dermatitis, unspecified; I10 Essential (primary) hypertension; E78.2 Mixed hyperlipidemia; F17.200 Nicotine dependence, unspecified, uncomplicated; Z91.19 Patient's noncompliance with other medical treatment and regimen; F10.10 Alcohol abuse, uncomplicated; Z91.81 History of falling; Z79.84 Long term (current) use of oral hypoglycemic drugs; Z79.4 Long term (current) use of insulin; Z79.899 Other long term (current) drug therapy
CPT/HCPCS: 82962; 97535-GO; A9270-GY; G0515-GO